=== PATIENT | male | born 2000 | race Caucasian/White ===

== ENCOUNTER 2021-01-04 00:02 | Inpatient (IN) ==
[2021-01-04 00:42] LABS: Basophils # (auto) 0.04 K/uL (0-0.2); Basophils % (auto) 0.5 %; Eosinophils # (auto) 0.09 K/uL (0-0.5); Eosinophils % (auto) 1.1 %; Hematocrit (blood only) 43.9 % (42-52); Hemoglobin 15.1 g/dL (14.0-18.0); Immature Granulocytes # (auto) 0.01 K/uL (0.00-0.02); Immature Granulocytes % (auto) 0.1 %; Lymphocytes % (auto) 30.1 %; Mean Corpuscular Hemoglobin 31.3 pg (25-34); Mean Corpuscular Hgb Conc 34.4 g/dL (32-36); Mean Corpuscular Volume 91.1 fL (80-100); Mean Platelet Volume 10.3 fL (7.4-10.4); Monocytes # (auto) 0.61 K/uL (0.11-0.59); Monocytes % (auto) 7.7 %; Neutrophils # (auto) 4.82 K/uL (1.4-6.5); Neutrophils % (auto) 60.5 %; Platelet Count 265 K/uL (130-400); RDW Coefficient of Variation 12.4 % (11.5-14.5); RDW Standard Deviation 41.9 fL (36.4-46.3); Red Blood Count 4.82 M/uL (4.7-6.1); White Blood Count 7.97 K/uL (4.8-10.8)
[2021-01-04 00:47] LABS: Appearance Urine Clear (Clear); Bilirubin Urine Negative (Negative); Blood Urine Negative (Negative); Color Urine Yellow; Glucose Urine UA Negative (Negative); Ketones Urine Negative (Negative); Leukocyte Esterase Urine Negative (Negative); Nitrite Urine Negative (Negative); Protein Urine Trace (Negative); Urobilinogen Urine Negative (Negative)
[2021-01-04 01:00] LABS: Albumin Level 4.6 gm/dl (3.4-5.0); BUN Creatinine Ratio 12.7 (10-20); Calcium 8.6 mg/dl (8.5-10.1); Creatinine Clr Calc Pharmacy 108.3 ml/min; Est GFR (African American) 97.1; Est GFR (Non-African American) 83.8; Potassium 3.6 mmol/L (3.5-5.1)
[2021-01-04 01:01] LABS: Amphetamines+Metham, Urine Neg (Neg); Bacteria Urine Negative (Negative); Barbiturates, Urine Neg (Neg); Benzodiazepine, Urine Neg (Neg); Cocaine, Urine Neg (Neg); Epithelial Cell Urine 20-30 /lpf (0-5); MDMA (Ecstacy), Urine Neg (Neg); Methadone, Urine Neg (Neg); Opiate, Urine Neg (Neg); Phencyclidine, Urine Neg (Neg); RBC Urine 0-4 /hpf (0-4); WBC Urine 0-5 /hpf (0-5)
[2021-01-04 01:10] LABS: Albumin Globulin Ratio 1.2 (0.9-2); Bilirubin,Total 0.6 mg/dl (0.2-1); Globulin 3.9 gm/dl (2.5-4.0); Thyroid Stimulating Hormone 1.21 uIu/ml (0.300-4.500); Total Protein 8.5 gm/dl (6.4-8.2)
[2021-01-04 01:19] LABS: Acetaminophen < 2 ug/ml (10-30)
[2021-01-04 01:20] LABS: Salicylate < 1.7 mg/dl (2.8-20)
--- NOTE | 2021-01-04 02:03 | Emergency Department Note ---
Impression & Plan Mood disorder, Alcohol intoxication ED Provider Note NAME: MIKE GONZALEZ AGE: 20 SEX: M : 2000 ARRIVES VIA: Walk-In INFORMANT: Patient, ED PROVIDER(S): Blu Plaza MD CHIEF COMPLAINT: intoxication, mood disorder HPI: This is a 20-year-old male who presents intoxicated to the emergency department. The patient reports he was drinking alcohol this evening when he supposedly made suicidal statements to his girlfriend. The patient reports he does not have a specific plan in mind and upon arrival to the emergency department chalks it up to drinking alcohol this evening. The patient reports he ran away from his girlfriend and went to the [facility] to be by himself. Upon arrival to the emergency department the patient denies being suicidal or homicidal. He does admit to drinking this evening. He reports nothing has made the thoughts any better or any worse. He has not taken anything for his thoughts prior to arrival. ROS: See above HPI for pertinent positives & negatives. A total of 10 systems reviewed and were otherwise negative. PAST MEDICAL HISTORY: See Below PAST SURGICAL HISTORY: See Below FAMILY HISTORY: See Below SOCIAL HISTORY: See Below HOME MEDICATIONS: See Below ALLERGIES: See Below VITALS: See Below PHYSICAL EXAMINATION: VITAL SIGNS - Vital signs and nursing notes were reviewed. GENERAL - 20-year-old male appearing stated age who is in no acute distress. Communicates well with provider and answers questions appropriately. SKIN - Without rashes. HEAD - NC/AT. EYES - PERRL with EOMI bilaterally. Sclera anicteric. Palpebral conjunctiva pink and moist with no injection noted. EARS - No deformities of external structures noted on gross examination bilaterally. NOSE - Midline and without cyanosis. No epistaxis or purulent drainage noted. Septum midline without deviation or septal hematoma noted. MOUTH/OROPHARYNX - Without perioral cyanosis. Buccal mucosa pink and moist and without leukoplakia. Tongue midline with equal elevation of palate bilaterally. No tonsillar hypertrophy, erythema, or exudates noted. dentition noted. NECK - Neck with FROM. Supple to palpation. lymphadenopathy noted. No nuchal rigidity. LUNGS - Chest wall symmetric without accessory muscle use, intercostals retractions, or central cyanosis. Normal vesicular breath sounds CTA B/L. No wheezes, rales, or rhonchi appreciated. CARDIAC - RRR with S1/S2. No murmur, rubs, or gallops appreciated. ABDOMEN - Abdominal contour without pulsations or visible masses. BS normoactive all four quadrants. No tenderness, palpable masses, hepat osplenomegaly, or ascites noted. EXTREMITIES - No clubbing or peripheral cyanosis. No pretibial edema present. +3/5 radial, posterior tibial, and dorsalis pedis pulses palpated throughout. +5/5 strength noted in UE/LE bilaterally. NEUROLOGIC - Cranial nerves II through XII grossly intact. Sensory intact to light touch throughout. Patellar reflexes +2/4. PSYCH - A&Ox3 and cooperates fully with examiner. Pt is very pleasant and interacts well with examiner. MEDICAL DECISION MAKING: Patient was seen and evaluated as above in room A5. Review was performed of nursing notes and vital signs. I did review pertinent previous visits and patient history. After obtaining a thorough history and physical examination the above work up was performed. This is a 20-year-old male who presents emergency department intoxicated. The patient's blood alcohol level was found to be elevated at 0.15. He was observed in the emergency department until his intoxication was cleared. He was then evaluated by psychiatric case management. In the meanwhile I also did discuss the patient's case with his mother who arrived from [place]. Patient was subsequently evaluated by psychiatric case management after his intoxication did clear and he was admitted to [facility]. The patient was evaluated during a period of high volume and high acuity during the global COVID-19 pandemic, and that diagnosis was suspected/considered upon their initial presentation. Their evaluation, treatment and testing was consistent with current guidelines for patients who present with complaints or symptoms that may be related to COVID-19. Patient was seen while provider was wearing PPE. Triage Nursing notes reviewed. Prior medical records reviewed Vital Signs: reviewed and remarkable for no significant abnormalities Differential diagnosis: Mood disorder, infection, hypoglycemia, electrolyte abnormalities, cardiac sources, intracerebral event, toxicologic, trauma, neurologic, as well as other pathologies. ER treatment provided: See below Laboratory studies: As stated above and show below. Consultation(s): Psychiatric case management Past Med/Surg History Medical History Alcohol abuse Marijuana abuse Suicidal ideation Social History Smoking Status: Current every day smoker (meeting up with a friend to use the f ritiffany's vape regularly) Preferred Language: Armenian Communication Ability: Effective Rf Engineer Required: No Beliefs That Will Affect Care: None Feels Safe at Home: Yes Assistive Devices: None Allergies Allergies Allergy/AdvReac Type Severity Reaction Status Date / Time No Known Allergies Allergy Unverified 01/04/21 13:31 Home Meds Home Medications Medication Instructions Recorded Confirmed quetiapine 25 mg PO DAILY 01/04/21 01/04/21 sertraline 50 mg PO DAILY 01/04/21 01/04/21 Results & Data (ED) Vital Signs Vital Signs - 24 hr 01/04/21 00:13 01/04/21 02:15 Temperature 37.3 C Temperature Source Temporal Artery Scan Pulse Rate 95 H Pulse Rate [Left Finger] 70 Pulse Rhythm [Left Finger] Regular Pulse Strength [Left Finger] Normal Respiratory Rate 16 16 Respiratory Effort / Characteristics Non-Labored Spontaneous Respiratory Depth Normal Normal Respiratory Pattern Regular Blood Pressure 133/80 Blood Pressure [Left Arm] 135/63 Blood Pressure Mean 97 Blood Pressure Mean [Left Arm] 87 Blood Pressure Position [Left Arm] Lying Pulse Oximetry 98 98 Oxygen Delivery Method Room Air Room Air Sepsis Recent Fever Within 48 Hours No Sepsis New/Unexplained Change in Mental Status N/A Sepsis Action Taken by Nursing No Action Required Laboratory Data Result diagrams: 01/04/21 00:29 01/04/21 00:29 Lab Results 01/04/21 01/04/21 01/04/21 Range/Units 00:24 00:24 00:29 WBC 7.97 (4.8-10.8) K/uL RBC 4.82 (4.7-6.1) M/uL Hgb 15.1 (14.0-18.0) g/dL Hct 43.9 (42-52) % MCV 91.1 (80-100) fL MCH 31.3 (25-34) pg MCHC 34.4 (32-36) g/dL RDW Std Deviation 41.9 (36.4-46.3) fL RDW Coeff of Vasquez 12.4 (11.5-14.5) % Plt Count 265 (130-400) K/uL MPV 10.3 (7.4-10.4) fL Immature Gran % (Auto) 0.1 % Neut % (Auto) 60.5 % Lymph % (Auto) 30.1 % [place] % (Auto) 7.7 % Eos % (Auto) 1.1 % Baso % (Auto) 0.5 % Neut # (Auto) 4.82 (1.4-6.5) K/uL Lymph # (Auto) 2.40 (1.2-3.4) K/uL [place] # (Auto) 0.61 H (0.11-0.59) K/uL Eos # (Auto) 0.09 (0-0.5) K/uL Baso # (Auto) 0.04 (0-0.2) K/uL Immature Gran # (Auto) 0.01 (0.00-0.02) K/uL Sodium (136-145) mmol/L Potassium (3.5-5.1) mmol/L Chloride (98-107) mmol/L Carbon Dioxide (21-32) mmol/L Anion Gap (3-11) BUN (7-18) mg/dl Creatinine (0.6-1.4) mg/dl Est Cr Clr Drug Dosing ml/min Est GFR ( Amer) Est GFR (Non-Af Amer) BUN/Creatinine Ratio (10-20) Glucose (70-99) mg/dl Calcium (8.5-10.1) mg/dl Total Bilirubin (0.2-1) mg/dl AST (15-37) U/L ALT (12-78) U/L Alkaline Phosphatase (45-117) U/L Total Protein (6.4-8.2) gm/dl Albumin (3.4-5.0) gm/dl Globulin (2.5-4.0) gm/dl Albumin/Globulin Ratio (0.9-2) TSH (0.300-4.500) uIu/ml Urine Color Yellow Urine Appearance Clear (Clear) Urine pH 5.0 (4.5-7.5) Ur Specific [place] 1.010 (1.000-1.030) Urine Protein Trace H (Negative) Urine Glucose (UA) Negative (Negative) Urine Ketones Negative (Negative) Urine Blood Negative (Negative) Urine Nitrite Negative (Negative) Urine Bilirubin Negative (Negative) Urine Urobilinogen Negative (Negative) Ur Leukocyte Esterase Negative (Negative) Urine RBC 0-4 (0-4) /hpf Urine WBC 0-5 (0-5) /hpf Ur Epithelial Cells 20-30 H (0-5) /lpf Urine Bacteria Negative (Negative) Salicylates (2.8-20) mg/dl Urine Opiates Screen Neg (Neg) Ur Methadone, Qual Neg (Neg) Acetaminophen (10-30) ug/ml Urine Barbiturates Neg (Neg) Ur Phencyclidine (PCP) Neg (Neg) U Amphetamin/Meth Scrn Neg (Neg) MDMA (Ecstasy) Screen Neg (Neg) U Benzodiazepines Scrn Neg (Neg) Ur Cocaine Metabolite Neg (Neg) U Marijuana (THC) Screen Neg (Neg) Ethyl Alcohol mg/dL (0-3) mg/dl COVID-19 Eval Order SARS-CoV-2, RNA, NAAT (NEGATIVE) 01/04/21 01/04/21 01/04/21 Range/Units 00:29 00:29 00:29 WBC (4.8-10.8) K/uL RBC (4.7-6.1) M/uL Hgb (14.0-18.0) g/dL Hct (42-52) % MCV (80-100) fL MCH (25-34) pg MCHC (32-36) g/dL RDW Std Deviation (36.4-46.3) fL RDW Coeff of Vasquez (11.5-14.5) % Plt Count (130-400) K/uL MPV (7.4-10.4) fL Immature Gran % (Auto) % Neut % (Auto) % Lymph % (Auto) % [place] % (Auto) % Eos % (Auto) % Baso % (Auto) % Neut # (Auto) (1.4-6.5) K/uL Lymph # (Auto) (1.2-3.4) K/uL [place] # (Auto) (0.11-0.59) K/uL Eos # (Auto) (0-0.5) K/uL Baso # (Auto) (0-0.2) K/uL Immature Gran # (Auto) (0.00-0.02) K/uL Sodium 139 (136-145) mmol/L Potassium 3.6 (3.5-5.1) mmol/L Chloride 106 (98-107) mmol/L Carbon Dioxide 27 (21-32) mmol/L Anion Gap 6.0 (3-11) BUN 16 (7-18) mg/dl Creatinine 1.24 (0.6-1.4) mg/dl Est Cr Clr Drug Dosing 108.3 ml/min Est GFR ( Amer) 97.1 Est GFR (Non-Af Amer) 83.8 BUN/Creatinine Ratio 12.7 (10-20) Glucose 91 (70-99) mg/dl Calcium 8.6 (8.5-10.1) mg/dl Total Bilirubin 0.6 (0.2-1) mg/dl AST 15 (15-37) U/L ALT 23 (12-78) U/L Alkaline Phosphatase 94 (45-117) U/L Total Protein 8.5 H (6.4-8.2) gm/dl Albumin 4.6 (3.4-5.0) gm/dl Globulin 3.9 (2.5-4.0) gm/dl Albumin/Globulin Ratio 1.2 (0.9-2) TSH 1.210 (0.300-4.500) uIu/ml Urine Color Urine Appearance (Clear) Urine pH (4.5-7.5) Ur Specific [place] (1.000-1.030) Urine Protein (Negative) Urine Glucose (UA) (Negative) Urine Ketones (Negative) Urine Blood (Negative) Urine Nitrite (Negative) Urine Bilirubin (Negative) Urine Urobilinogen (Negative) Ur Leukocyte Esterase (Negative) Urine RBC (0-4) /hpf Urine WBC (0-5) /hpf Ur Epithelial Cells (0-5) /lpf Urine Bacteria (Negative) Salicylates < 1.7 L (2.8-20) mg/dl Urine Opiates Screen (Neg) Ur Methadone, Qual (Neg) Acetaminophen < 2 L (10-30) ug/ml Urine Barbiturates (Neg) Ur Phencyclidine (PCP) (Neg) U Amphetamin/Meth Scrn (Neg) MDMA (Ecstasy) Screen (Neg) U Benzodiazepines Scrn (Neg) Ur Cocaine Metabolite (Neg) U Marijuana (THC) Screen (Neg) Ethyl Alcohol mg/dL 154.7 H (0-3) mg/dl COVID-19 Eval Order SARS-CoV-2, RNA, NAAT (NEGATIVE) 03/11/21 03/11/21 Range/Units 05:15 05:15 WBC (4.8-10.8) K/uL RBC (4.7-6.1) M/uL Hgb (14.0-18.0) g/dL Hct (42-52) % MCV (80-100) fL MCH (25-34) pg MCHC (32-36) g/dL RDW Std Deviation (36.4-46.3) fL RDW Coeff of Vasquez (11.5-14.5) % Plt Count (130-400) K/uL MPV (7.4-10.4) fL Immature Gran % (Auto) % Neut % (Auto) % Lymph % (Auto) % [place] % (Auto) % Eos % (Auto) % Baso % (Auto) % Neut # (Auto) (1.4-6.5) K/uL Lymph # (Auto) (1.2-3.4) K/uL [place] # (Auto) (0.11-0.59) K/uL Eos # (Auto) (0-0.5) K/uL Baso # (Auto) (0-0.2) K/uL Immature Gran # (Auto) (0.00-0.02) K/uL Sodium (136-145) mmol/L Potassium (3.5-5.1) mmol/L Chloride (98-107) mmol/L Carbon Dioxide (21-32) mmol/L Anion Gap (3-11) BUN (7-18) mg/dl Creatinine (0.6-1.4) mg/dl Est Cr Clr Drug Dosing ml/min Est GFR ( Amer) Est GFR (Non-Af Amer) BUN/Creatinine Ratio (10-20) Glucose (70-99) mg/dl Calcium (8.5-10.1) mg/dl Total Bilirubin (0.2-1) mg/dl AST (15-37) U/L ALT (12-78) U/L Alkaline Phosphatase (45-117) U/L Total Protein (6.4-8.2) gm/dl Albumin (3.4-5.0) gm/dl Globulin (2.5-4.0) gm/dl Albumin/Globulin Ratio (0.9-2) TSH (0.300-4.500) uIu/ml Urine Color Urine Appearance (Clear) Urine pH (4.5-7.5) Ur Specific [place] (1.000-1.030) Urine Protein (Negative) Urine Glucose (UA) (Negative) Urine Ketones (Negative) Urine Blood (Negative) Urine Nitrite (Negative) Urine Bilirubin (Negative) Urine Urobilinogen (Negative) Ur Leukocyte Esterase (Negative) Urine RBC (0-4) /hpf Urine WBC (0-5) /hpf Ur Epithelial Cells (0-5) /lpf Urine Bacteria (Negative) Salicylates (2.8-20) mg/dl Urine Opiates Screen (Neg) Ur Methadone, Qual (Neg) Acetaminophen (10-30) ug/ml Urine Barbiturates (Neg) Ur Phencyclidine (PCP) (Neg) U Amphetamin/Meth Scrn (Neg) MDMA (Ecstasy) Screen (Neg) U Benzodiazepines Scrn (Neg) Ur Cocaine Metabolite (Neg) U Marijuana (THC) Screen (Neg) Ethyl Alcohol mg/dL (0-3) mg/dl COVID-19 Eval Order Covid19 [facility] SARS-CoV-2, RNA, NAAT NEGATIVE (NEGATIVE) Administered Medications Quetiapine Fumarate (Quetiapine Fumarate 25 Mg Tablet) 25 mg PO HS JEREMIAS Stop: 02/03/21 21:59 Last Admin: 01/04/21 20:56 Dose: 25 mg Documented by: [id number] Discharge Plan Visit Data Chief Complaint: Mental Health Evaluation Stated Complaint: MENTAL EVAL ED Provider: Blu Plaza Discharge Problem: Mood disorder, Alcohol intoxication Patient Disposition: Admitted As Inpatient Discharge Instructions Interventions: ED Discharge Assessment Last Done: 01/04/21 06:44 Discharge Problem: Alcohol intoxication Qualifiers: Complication of substance-induced condition: uncomplicated Qualified Code(s): F10.920 - Alcohol use, unspecified with intoxication, uncomplicated
[2021-01-04] MEDS ORDERED: MAGNESIUM HYDROXIDE SUSP 30 ML UDC PO PRN ×2 (06:18→07:05)
[2021-01-04] MEDS ORDERED: hydrOXYzine HCl 25 MG TAB PO PRN ×2 (07:05)
[2021-01-04] MEDS ORDERED: ALUMINUM/MAGNESIUM SUSP 30 ML UDC PO PRN (07:05)
[2021-01-04] MEDS ORDERED: BISMUTH SUBSALICYLATE LIQD 236 ML PO PRN (07:05)
[2021-01-04] MEDS ORDERED: ACETAMINOPHEN 325 MG TAB PO PRN (07:05)
[2021-01-04] MEDS ORDERED: SODIUM CHLORIDE 0.65% NA SOLN 45 ML (OCEAN) PRN (07:05)
[2021-01-04] MEDS ORDERED: PATIENT'S HEIGHT AND/OR WEIGHT NEEDED SCH (07:15)
[2021-01-04] MEDS ORDERED: PATIENT'S ALLERGY INFO NEEDS ENTERED SCH (07:30)
--- NOTE | 2021-01-04 08:21 | History & Physical ---
Date of Service January 04, 2021 Impression / Recommendations (1) Suicidal ideation: 01/04 - Continue voluntary admission, suicide checks for safety. Encourage group attendance and participation, work on healthy coping skills and discharge safety plan. (2) Marijuana abuse: 01/04 - H/o treatment for cannabis abuse, continues to use. (3) Alcohol abuse: 01/04 - Brief intervention was offered and [accepted] [refused] Intervention (if performed) was [greater than 5] min in length. Brief interventions include: 1. Assess Readiness to Quit, 2. Advise: Help Patient to Reduce or Abstain from Alcohol, 3. Agree: Set Specific, Feasible Goals, 4. Assist: Anticipate barriers, Problem-Solving Solutions. Social work to 5. Arrange: Referrals to appropriate treatment. Summary of intervention: The patient is in [precontemplation] stage with regards to transtheoretical model of change. The patient is advised to decrease alcohol consumption due to depressant effects and risk of interactions with prescription medications. The patient agreed to [] and will be provided with recovery materials to continue to education self on how to cope with their condition without drinking. 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 Chief Complaint "[]". History of Present Illness Patient presented to the ER overnight, intoxicated, after making suicidal statements to his girlfriend. She completed a lengthy, 3 page petition outlining the events of last night, including that he told her was staying in, then went out drinking and a friend saw him, told the girlfriend, who confronted him downtown. He got upset, made suicidal statements (that he was going to end it tonight), and was hitting his head with his hands. He climbed up a pole and banged his head against it, laid in the grass and repeatedly stated he was going to kill himself tonight. She called friends for help, and he ran away from them. When they caught up to him, he pushed one of them away and "got a little violent." One of the friends called his mother, and they called 911. She reported he drinks excessively and smokes marijuana, despite getting treatment (IOP) for cannabis dependence in the past. 2 weeks ago, he also made statements that he did not want to be alive and hurts everyone. She said he was prescribed quetiapine 25mg and sertraline 50mg by his PCP about 2 months ago. In the ER, he reported suicidal thoughts for the past several months, said he was "testing boundaries with suicide," and on at least 2 occasions drank excessively, not caring if he . Admission labs notable for ethyl alcohol 154.7. He agreed to voluntary hospitalization. Past Psychiatric History Previous Psych History: IOP ([facility]) for THC dependence Current Psychiatric Diagnosis: Bipolar, Anxiety, Depression, OCD, cannabis dependence Outpatient Services: Therapist Katt Woods in [facility] [address] Vladimir Delacruz in [place] History of Previous Suicide Attempt: Yes (Drinking to excess on multiple occasions with hopes not to wake up) Home Medications Medication Instructions Recorded Confirmed Type quetiapine 25 mg PO DAILY 01/04/21 01/04/21 History sertraline 50 mg PO DAILY 01/04/21 01/04/21 History Family History Family History of: Doesn't Know Alcohol History Hx of Alcohol Use Over the Past 12 Months: Yes (Social) AUDIT Total Score: 4 Per girlfriend, drinks to excess, suicidality intensifies when intoxicated Smoking Use Have You Smoked or Used Tobacco Products in the Last 30 Days: No Smoking Status: Never smoker Substance History Hx of Prescription Med Misuse Over the Past 12 Months: No Hx of Over the Counter Med Misuse Over the Past 12 Months: No Hx of Inhalent Misuse Over the Past 12 Months: No Hx of Organic Substance Use Over the Past 12 Months: Yes (Marijuana) Hx of Illegal Substances/Street Drug Use Over Past 12 Months: No Problems as a Result of Past Substance Use: Other (Suicidality intensifies when intoxicated) Personal History Living Arrangements: Dorm Childhood: Adopted from a [place] orphanage at age 4. Knows nothing of his biological family. Only child, raised in [place]. Highest Grade Completed: High School Graduate Employment Status: Student Marital Status: Single Number Of Children: 0 Beliefs That Will Affect Care: None Patient History Medical History (Updated 01/04/21 @ 08:41 by Maile Joya MD) Alcohol abuse Marijuana abuse Suicidal ideation Social History Smoking Status: Never smoker Preferred Language: Argentine Communication Ability: Effective Cigarette Tipper Required: No Beliefs That Will Affect Care: None Feels Safe at Home: Yes Assistive Devices: None Physical Exam Vital Signs (Past 24 Hours): Last Vital Signs Temp 37.3 C 01/04/21 07:13 Pulse 60 01/04/21 07:13 Resp 16 01/04/21 07:13 BP 121/70 01/04/21 07:13 Pulse Ox 97 01/04/21 06:44 Exam Statement: A physical exam was performed in the ER prior to admission to the unit by Dr. Blu Plaza. I accept that physical as correct/medical clearance for the inpatient physical exam. Results & Data ([facility]) Laboratory Results Laboratory Results - last 24 hr 01/04/21 01/04/21 01/04/21 00:24 00:24 00:29 WBC 7.97 RBC 4.82 Hgb 15.1 Hct 43.9 MCV 91.1 MCH 31.3 MCHC 34.4 RDW Std Deviation 41.9 RDW Coeff of Vasquez 12.4 Plt Count 265 MPV 10.3 Immature Gran % (Auto) 0.1 Neut % (Auto) 60.5 Lymph % (Auto) 30.1 [place] % (Auto) 7.7 Eos % (Auto) 1.1 Baso % (Auto) 0.5 Neut # (Auto) 4.82 Lymph # (Auto) 2.40 [place] # (Auto) 0.61 H Eos # (Auto) 0.09 Baso # (Auto) 0.04 Immature Gran # (Auto) 0.01 Sodium Potassium Chloride Carbon Dioxide Anion Gap BUN Creatinine Est Cr Clr Drug Dosing Est GFR ( Amer) Est GFR (Non-Af Amer) BUN/Creatinine Ratio Glucose Calcium Total Bilirubin AST ALT Alkaline Phosphatase Total Protein Albumin Globulin Albumin/Globulin Ratio TSH Urine Color Yellow Urine Appearance Clear Urine pH 5.0 Ur Specific [place] 1.010 Urine Protein Trace H Urine Glucose (UA) Negative Urine Ketones Negative Urine Blood Negative Urine Nitrite Negative Urine Bilirubin Negative Urine Urobilinogen Negative Ur Leukocyte Esterase Negative Urine RBC 0-4 Urine WBC 0-5 Ur Epithelial Cells 20-30 H Urine Bacteria Negative Salicylates Urine Opiates Screen Neg Ur Methadone, Qual Neg Acetaminophen Urine Barbiturates Neg Ur Phencyclidine (PCP) Neg U Amphetamin/Meth Scrn Neg MDMA (Ecstasy) Screen Neg U Benzodiazepines Scrn Neg Ur Cocaine Metabolite Neg U Marijuana (THC) Screen Neg Ethyl Alcohol mg/dL COVID-19 Eval Order SARS-CoV-2, RNA, NAAT 01/04/21 01/04/21 01/04/21 00:29 00:29 00:29 WBC RBC Hgb Hct MCV MCH MCHC RDW Std Deviation RDW Coeff of Vasquez Plt Count MPV Immature Gran % (Auto) Neut % (Auto) Lymph % (Auto) [place] % (Auto) Eos % (Auto) Baso % (Auto) Neut # (Auto) Lymph # (Auto) [place] # (Auto) Eos # (Auto) Baso # (Auto) Immature Gran # (Auto) Sodium 139 Potassium 3.6 Chloride 106 Carbon Dioxide 27 Anion Gap 6.0 BUN 16 Creatinine 1.24 Est Cr Clr Drug Dosing 108.3 Est GFR ( Amer) 97.1 Est GFR (Non-Af Amer) 83.8 BUN/Creatinine Ratio 12.7 Glucose 91 Calcium 8.6 Total Bilirubin 0.6 AST 15 ALT 23 Alkaline Phosphatase 94 Total Protein 8.5 H Albumin 4.6 Globulin 3.9 Albumin/Globulin Ratio 1.2 TSH 1.210 Urine Color Urine Appearance Urine pH Ur Specific [place] Urine Protein Urine Glucose (UA) Urine Ketones Urine Blood Urine Nitrite Urine Bilirubin Urine Urobilinogen Ur Leukocyte Esterase Urine RBC Urine WBC Ur Epithelial Cells Urine Bacteria Salicylates < 1.7 L Urine Opiates Screen Ur Methadone, Qual Acetaminophen < 2 L Urine Barbiturates Ur Phencyclidine (PCP) U Amphetamin/Meth Scrn MDMA (Ecstasy) Screen U Benzodiazepines Scrn Ur Cocaine Metabolite U Marijuana (THC) Screen Ethyl Alcohol mg/dL 154.7 H COVID-19 Eval Order SARS-CoV-2, RNA, NAAT 01/04/21 01/04/21 05:15 05:15 WBC RBC Hgb Hct MCV MCH MCHC RDW Std Deviation RDW Coeff of Vasquez Plt Count MPV Immature Gran % (Auto) Neut % (Auto) Lymph % (Auto) [place] % (Auto) Eos % (Auto) Baso % (Auto) Neut # (Auto) Lymph # (Auto) [place] # (Auto) Eos # (Auto) Baso # (Auto) Immature Gran # (Auto) Sodium Potassium Chloride Carbon Dioxide Anion Gap BUN Creatinine Est Cr Clr Drug Dosing Est GFR ( Amer) Est GFR (Non-Af Amer) BUN/Creatinine Ratio Glucose Calcium Total Bilirubin AST ALT Alkaline Phosphatase Total Protein Albumin Globulin Albumin/Globulin Ratio TSH Urine Color Urine Appearance Urine pH Ur Specific [place] Urine Protein Urine Glucose (UA) Urine Ketones Urine Blood Urine Nitrite Urine Bilirubin Urine Urobilinogen Ur Leukocyte Esterase Urine RBC Urine WBC Ur Epithelial Cells Urine Bacteria Salicylates Urine Opiates Screen Ur Methadone, Qual Acetaminophen Urine Barbiturates Ur Phencyclidine (PCP) U Amphetamin/Meth Scrn MDMA (Ecstasy) Screen U Benzodiazepines Scrn Ur Cocaine Metabolite U Marijuana (THC) Screen Ethyl Alcohol mg/dL COVID-19 Eval [facility] SARS-CoV-2, RNA, NAAT NEGATIVE Current Inpatient Medications Current Inpatient Medications: Current Inpatient Medications Acetaminophen (Acetaminophen 325 Mg Tab) 650 mg PO Q4H PRN PRN Reason: Headache or Minor Fever Stop: 02/03/21 07:04 Al Hydrox/Mg Hydrox/Simethicone (Aluminum/Magnesium Susp 30 Ml Udc) 30 ml PO Q4H PRN PRN Reason: GI Upset Stop: 02/03/21 07:04 Bismuth Subsalicylate (Bismuth Subsalicylate Liqd 236 Ml) 15 ml PO PRN PRN PRN Reason: Loose Stool Stop: 02/03/21 07:04 Hydroxyzine HCl (Hydroxyzine Hcl 25 Mg Tab) 50 mg PO HSZ PRN PRN Reason: Insomnia Stop: 02/03/21 07:04 Hydroxyzine HCl (Hydroxyzine Hcl 25 Mg Tab) 25 mg PO Q4H PRN PRN Reason: Anxiety Stop: 02/03/21 07:04 Magnesium Hydroxide (Magnesium Hydroxide Susp 30 Ml Udc) 30 ml PO DAILY PRN PRN Reason: Constipation Stop: 02/03/21 07:04 Miscellaneous Information (Patient's Allergy Info Needs Entered) 1 ea N/A Q30M JEREMIAS Stop: 02/03/21 07:29 Sodium Chloride (Sodium Chloride 0.65% Na Soln 45 Ml (Neche)) 1 - 2 sprays NA PRN PRN PRN Reason: Nasal Dryness/Congestion Stop: 04/10/21 07:04
--- NOTE | 2021-01-04 12:31 | History & Physical ---
Date of Service January 04, 2021 Impression / Recommendations Impression 20-year-old male admitted voluntarily for inpatient psychiatric admission on 01/04/21 after presenting to the ED via police due to worsening depression and SI. Back-up 302 petitioning statement was completed by girlfriend who reported the patient had made suicidal statements prior to admission and resisted attempts by supports to assist with the situation. Although patient had reportedly been drinking prior to these events, girlfriend did admit this is a pattern of behavior for the patient even when sober. Pt has historical diagnoses of "depression, anxiety, OCD, and bipolar disorder" but only reports clear criteria for major depressive disorder and generalized anxiety disorder. Pt also endorses regular episodes of binge drinking as well as "nicotine addiction" with a history of intensive outpatient rehab for marijuana use ~1 year ago. He does see a therapist, now remotely due to being back at school, and medications are prescribed by his PCP. Pt was agreeable with titrating his dose of sertraline and wished to continue quetiapine which was reportedly started for insomnia. Pt will be encouraged to attend group programming and participate in a support meeting with parents to discuss safety and discharge planning. At this time, the patient continues to be at acute risk of harm to himself if discharged prematurely. Dr. Maile Joya was directly involved in review and discussion of the patient's case and participated in medical decision making regarding treatment recommendations. (1) Suicidal ideation: 01/04 - Admitted to a locked inpatient behavioral health unit, on q15 minute safety checks - Encourage medication initiation/adjustments as indicated - Encourage participation in group and recreational therapies - Gather collateral information from outpatient providers - Suggest family meeting to involve outpatient supports in safety planning - Arrange appropriate aftercare (2) Depression: 01/04 - Working diagnosis of major depressive disorder, given that patient has been experiencing episodes of depression since early High School. Differential includes substance-induced depressive disorder, or dysthymic disorder. Patient denies symptoms consistent with adam/hypomania, but does report an outpatient diagnosis of bipolar disorder/bipolar depression. - Pt agreed to titration of sertraline to 100mg daily. Risks, benefits, and potential side effects reviewed - this included Black Box warning regarding risk of suicidality in children and adolescents. We discussed reports that suggest suicidal thoughts may be more intense since medication changes were made; however, this timeline is also consistent with increased alcohol use and several situational stressors this semester. Pt was offered a trial of an alternative antidepressant medication, but agreed to initial plan to titrate sertraline while closely monitoring for worsening suicidality. Alternative medications would ideally address vegetative depressive symptom as well as chronic anxiety. - Pt will be encouraged to attend group and recreational programming - assist with development of healthy and effective coping strategies - Discuss influence of substance use on mood and anxiety, encourage D&A counseling - Schedule family meeting - ideally with parents - Referral for outpatient psychiatry - likely continuing with current individual therapist via teletherapy - Discuss safety and discharge planning Active/Remission status: currently active Depression Type: major depressive disorder Major depression episode severity: severe Major depression recurrence: recurrent Psychotic features: without psychotic features Qualified Code(s): F33.2 - Major depressive disorder, recurrent severe without psychotic features (3) Generalized anxiety disorder: 01/04 - Titrating sertraline as outlined above - Pt reports historical diagnosis of OCD and claims of "social anxiety", though reported anxiety is more consistent with "fear of missing out" or "fear that people don't like me or I'm not fitting in." - Encourage group attendance, 1:1 sessions as desired - Assist with development of healthy and effective coping strategies (4) Alcohol abuse: 01/04 - Monitor vitals daily - behavior is more consistent with binge drinking, seems to be at low risk for withdrawal, but could order AWSS protocol if indicated. - Encourage D&A counseling to address these concerns in addition to his mood/anxiety symptoms - Brief intervention was offered and accepted Intervention (if performed) was greater than 5 min in length. Brief interventions include: 1. Assess Readiness to Quit, 2. Advise: Help Patient to Reduce or Abstain from Alcohol, 3. Agree: Set Specific, Feasible Goals, 4. Assist: Anticipate barriers, Problem-Solving Solutions. Social work to 5. Arrange: Referrals to appropriate treatment. Summary of intervention: The patient is in contemplation stage with regards to transtheoretical model of change. The patient is advised to decrease alcohol consumption due to depressant effects and risk of interactions with prescription medications. The patient agreed to continue these discussion and will be provided with recovery materials to continue to education self on how to cope with their condition without drinking. (5) Marijuana abuse: 01/04 - History of intensive outpatient treatment for cannabis abuse his senior year of high school, reports "just occasional" use since that time - Offer D&A counseling (6) Nicotine abuse: 01/04 - Nicotine replacement products ordered Risk Factors Assessment Do You Have Access To A Gun?: No Protective Factors Assessment Employed: No Psychiatric History Identifying Data MIKE HODGES is a 20-year-old M who currently lives in a dorm room on [facility] and reports outpatient diagnoses of anxiety, depression, O CD, and bipolar disorder. Pt was admitted on 01/04/21 06:18 on a 201 voluntary commitment for worsening depression and SI. Brought to the ED by police, back- up 302 petitioning statement completed by patient's girlfriend. Chief Complaint "I'd say the biggest thing is that my girlfriend got upset with me. I do really bad with conflict, it feels like the end of the world sometimes." History of Present Illness Mike Hodges is a 20-year-old male admitted voluntarily for inpatient psychiatric treatment on 01/04/21 due to worsening depression and SI. He was reportedly drinking and became acutely upset and had verbalized suicidality. Pt continued to escalate, eventually escaping from the friends that were offering assistance and running away. Pt was found by police after the friends had called 911. Pt did agree to recommendations for mental health evaluation in the ED. Back-up 302 petitioning statement was prepared by the patient's girlfriend - some quotes from the statement include: "Robinson Thompson drank with some friends...he got upset. He started walking away and saying he was going to end it robinson. I followed him, he started hitting his head w/ his hands...kept saying he was going to kill himself robinson...Two weeks ago he said the same things, he didn't want to be alive and he hurts everyone. Tonight he also said he's been playing suicide the past 2 months." Statements do seem to suggest that these events occur more when the patient is intoxicated, but no isolated to these events. The patient was brought to the unit early this morning after reportedly little sleep in the ED. Numerous attempts were made this morning by our psychiatrist to attempt to meet with the patient and complete psychiatric evaluation. Pt continued to be too sedated to participate. Per the patient, he has been noticing increased dependence on nicotine and has been visiting with a friend who is "a bad influence" in order to use the friend's vape. The patient states that he has not been telling his girlfriend about this since the girlfriend requested he not hang out with this friend anymore. The patient had been drinking and his girlfriend confronted him about the visit, causing the patient to feel "my brain went into panic mode". Pt states he reported he wanted to kill himself and began walking away from his girlfriend while hitting his head. Pt ran away from his friends, who then called police. He states "I didn't really care what happened after I ran away, I wouldn't have cared if I got hurt." Pt states that the suicidal thoughts are worse when he is drinking, but he admits that even when sober he experiences thoughts of wanting to end his life. He reports these thoughts occur 3-4 times a week and usually in the evening. He states they have become worse since the start of the semester, due to feeling he is no longer a part of the friend group he established in the Fall. He reports feeling as though he does not have happiness outside of his girlfriend. Pt admits to depressive symptoms "since grade school, I never really fit in." He reports he would often feel he had to "fake it" to make friends and states he depression worsened in high school as "it was like someone hit the reset button, like I had to start all over again." Pt admits to depressive symptoms of persistent low moods, anhedonia, poor motivation/energy, increased desire for sleep, loneliness, hopelessness, and intermittent SI. Pt also admits to significant anxiety, feeling that he suffers from "FOMO, the fear of missing out." He says he likes to be social and feel involved, but gets anxious when he questions if his friends like him or feels like he needs to fit in. He reports racing thoughts that often interfere with sleep, difficulty concentrating, constant worry about "feeling like I have to do the 'right thing'", and occasional panic attacks that result in crying spells and nausea. In particular, the patient states the substance-abuse culture of college has been difficult - "that's just what people do when they hang out." Pt admits to routine binge drinking, which he does feel negatively affects his mood and relationships. He also admits to increased nicotine use recently. Pt has a history of intensive outpatient treatment for marijuana abuse in high school. Pt states he sees a therapist routinely, who has diagnosed him with OCD and bipolar disorder in addition to anxiety and depression. He denies clear obsessions or compulsions and does not report symptoms consistent with adam/hypomania. Pt denies HI, SIB, A/V hallucinations, paranoia, adam/hypomania, other symptoms more suggestive of a bipolar presentation, OCD, PTSD, eating disorder, and other specific psychiatric symptoms. Past Psychiatric History Current Psychiatric Diagnosis: Per patient: Bipolar, Anxiety, Depression, OCD Outpatient Services: Therapist - [facility] - based in [place], current seen via teletherapy Medications are prescribed by the patient's PCP Previous Psych Admissions: None Do You Have Access To A Gun?: No History of Previous Suicide Attempt: Yes (patient at least identifies a past attempt which occurred while drinking) Describe Attempts in the Past: drank "a whole case of beer with the hope that it would kill me" Past Medication Trials: Per patient reports: 1. Lexapro - sexual side effects 2. Zoloft 3. Seroquel - prescribed for insomnia Allergies Allergy/AdvReac Type Severity Reaction Status Date / Time No Known Allergies Allergy Unverified 01/04/21 13:31 Home Medications Medication Instructions Recorded Confirmed Type quetiapine 25 mg PO DAILY 01/04/21 01/04/21 History sertraline 50 mg PO DAILY 01/04/21 01/04/21 History Family History Family History of: Doesn't Know (patient was adopted from [place] at age 4) Alcohol History Hx of Alcohol Use Over the Past 12 Months: Yes (Social) AUDIT Total Score: 4 Pt admits to routine binge drinking - generally at least 2 days a week. Pt adm its to generally consuming 10+ beverages, usually liquor in a night. He does admit to getting drunk or even blacking out with this amount. Smoking Use Have You Smoked or Used Tobacco Products in the Last 30 Days: Yes tobacco type: e-cigarettes Smoking Status: Current every day smoker (meeting up with a friend to use the friend's vape regularly) Substance History Hx of Prescription Med Misuse Over the Past 12 Months: No Hx of Over the Counter Med Misuse Over the Past 12 Months: No Hx of Inhalent Misuse Over the Past 12 Months: No Hx of Organic Substance Use Over the Past 12 Months: Yes (Marijuana) Hx of Illegal Substances/Street Drug Use Over Past 12 Months: No Problems as a Result of Past Substance Use: None Identified Pt admits to "only occasional" use of marijuana recently - though does state he has been "dependent" on the substance in the past and did attend a 6 month outpatient intensive treatment program during his senior year of high school. Personal History Living Arrangements: [facility] [place] Highest Grade Completed: Some College (Currently a second-semester Freshman at [employer]. 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) Employment Status: Student Marital Status: Single (girlfriend of 5 months) Number Of Children: None Beliefs That Will Affect Care: None Hx Legal Problems: No (though unsure if he will get an underage from events prior to admission) Psychological Trauma History Comment: Denied - pt was adopted from [place] at age 4, but states he does not remember events related to this Patient History Medical History Alcohol abuse Marijuana abuse Suicidal ideation Social History Smoking Status: Current every day smoker (meeting up with a friend to use the friend's vape regularly) Preferred Language: Japanese Communication Ability: Effective Byproducts Operator Required: No Beliefs That Will Affect Care: None Feels Safe at Home: Yes Assistive Devices: None Review of Systems Review of Systems: Constitutional: reports fatigue today Cardiovascular: denied Respiratory: denied Gastrointestinal: denied Neurological: denied Musculoskeletal: reports occasional joint pain/body aches Psychiatric: denies symptoms other than stated above Total of at least 10 systems reviewed, pertinent positives as above and in HPI. Physical Exam Psychiatric: Orientation: alert, oriented x 3 and cooperative Apperance: appropriately dressed, appropriately groomed and appeared stated age Cauc[place] an male of larger build, not overweight, observed while laying in bed appearing initially to be very tearful. He is casually and appropriately dressed. Hair is appearing somewhat disheveled from running his hands through it. Level of hygiene and grooming appears adequate. Eye Contact: + fair eye contact Motor Behavior: no abnormal motor movements (observed while either laying or sitting upright in bed) Speech: normal rate/rhythm/volume of speech Affect: + depressed affect and + tearful affect Mood: + depressed mood and + anxious mood Thought Process: goal directed thought process and clear/coherent thought process Thought Content: + cognitive distortions, + loneliness, + guilt and + self deprecation Suicidal Thoughts: + reports suicidal thoughts Hallucinations: no auditory hallucinations and no visual hallucinations Cognition: recent memory grossly intact, attention grossly intact and language grossly intact Estimated Intelligence: consistent with education level Insight: + limited insight Judgement: + limited judgement Vital Signs (Past 24 Hours): Last Vital Signs Temp 37.3 C 01/04/21 07:13 Pulse 60 01/04/21 07:13 Resp 16 01/04/21 07:13 BP 121/70 01/04/21 07:13 Pulse Ox 97 01/04/21 06:44 Exam Statement: A physical exam was performed in the ER prior to admission to the unit by Dr. Blu Plaza MD. I accept that physical as correct/medical clearance for the inpatient physical exam. Results & Data (U) Laboratory Results Laboratory Results - last 24 hr 01/04/21 01/04/21 01/04/21 00:24 00:24 00:29 WBC 7.97 RBC 4.82 Hgb 15.1 Hct 43.9 MCV 91.1 MCH 31.3 MCHC 34.4 RDW Std Deviation 41.9 RDW Coeff of Vasquez 12.4 Plt Count 265 MPV 10.3 Immature Gran % (Auto) 0.1 Neut % (Auto) 60.5 Lymph % (Auto) 30.1 Bibb % (Auto) 7.7 Eos % (Auto) 1.1 Baso % (Auto) 0.5 Neut # (Auto) 4.82 Lymph # (Auto) 2.40 Bibb # (Auto) 0.61 H Eos # (Auto) 0.09 Baso # (Auto) 0.04 Immature Gran # (Auto) 0.01 Sodium Potassium Chloride Carbon Dioxide Anion Gap BUN Creatinine Est Cr Clr Drug Dosing Est GFR ( Amer) Est GFR (Non-Af Amer) BUN/Creatinine Ratio Glucose Calcium Total Bilirubin AST ALT Alkaline Phosphatase Total Protein Albumin Globulin Albumin/Globulin Ratio TSH Urine Color Yellow Urine Appearance Clear Urine pH 5.0 Ur Specific [place] 1.010 Urine Protein Trace H Urine Glucose (UA) Negative Urine Ketones Negative Urine Blood Negative Urine Nitrite Negative Urine Bilirubin Negative Urine Urobilinogen Negative Ur Leukocyte Esterase Negative Urine RBC 0-4 Urine WBC 0-5 Ur Epithelial Cells 20-30 H Urine Bacteria Negative Salicylates Urine Opiates Screen Neg Ur Methadone, Qual Neg Acetaminophen Urine Barbiturates Neg Ur Phencyclidine (PCP) Neg U Amphetamin/Meth Scrn Neg MDMA (Ecstasy) Screen Neg U Benzodiazepines Scrn Neg Ur Cocaine Metabolite Neg U Marijuana (THC) Screen Neg Ethyl Alcohol mg/dL COVID-19 Eval Order SARS-CoV-2, RNA, NAAT 01/04/21 01/04/21 01/04/21 00:29 00:29 00:29 WBC RBC Hgb Hct MCV MCH MCHC RDW Std Deviation RDW Coeff of Vasquez Plt Count MPV Immature Gran % (Auto) Neut % (Auto) Lymph % (Auto) Bibb % (Auto) Eos % (Auto) Baso % (Auto) Neut # (Auto) Lymph # (Auto) Bibb # (Auto) Eos # (Auto) Baso # (Auto) Immature Gran # (Auto) Sodium 139 Potassium 3.6 Chloride 106 Carbon Dioxide 27 Anion Gap 6.0 BUN 16 Creatinine 1.24 Est Cr Clr Drug Dosing 108.3 Est GFR ( Amer) 97.1 Est GFR (Non-Af Amer) 83.8 BUN/Creatinine Ratio 12.7 Glucose 91 Calcium 8.6 Total Bilirubin 0.6 AST 15 ALT 23 Alkaline Phosphatase 94 Total Protein 8.5 H Albumin 4.6 Globulin 3.9 Albumin/Globulin Ratio 1.2 TSH 1.210 Urine Color Urine Appearance Urine pH Ur Specific [place] Urine Protein Urine Glucose (UA) Urine Ketones Urine Blood Urine Nitrite Urine Bilirubin Urine Urobilinogen Ur Leukocyte Esterase Urine RBC Urine WBC Ur Epithelial Cells Urine Bacteria Salicylates < 1.7 L Urine Opiates Screen Ur Methadone, Qual Acetaminophen < 2 L Urine Barbiturates Ur Phencyclidine (PCP) U Amphetamin/Meth Scrn MDMA (Ecstasy) Screen U Benzodiazepines Scrn Ur Cocaine Metabolite U Marijuana (THC) Screen Ethyl Alcohol mg/dL 154.7 H COVID-19 Eval Order SARS-CoV-2, RNA, NAAT 01/04/21 01/04/21 05:15 05:15 WBC RBC Hgb Hct MCV MCH MCHC RDW Std Deviation RDW Coeff of Vasquez Plt Count MPV Immature Gran % (Auto) Neut % (Auto) Lymph % (Auto) Bibb % (Auto) Eos % (Auto) Baso % (Auto) Neut # (Auto) Lymph # (Auto) Bibb # (Auto) Eos # (Auto) Baso # (Auto) Immature Gran # (Auto) Sodium Potassium Chloride Carbon Dioxide Anion Gap BUN Creatinine Est Cr Clr Drug Dosing Est GFR ( Amer) Est GFR (Non-Af Amer) BUN/Creatinine Ratio Glucose Calcium Total Bilirubin AST ALT Alkaline Phosphatase Total Protein Albumin Globulin Albumin/Globulin Ratio TSH Urine Color Urine Appearance Urine pH Ur Specific [place] Urine Protein Urine Glucose (UA) Urine Ketones Urine Blood Urine Nitrite Urine Bilirubin Urine Urobilinogen Ur Leukocyte Esterase Urine RBC Urine WBC Ur Epithelial Cells Urine Bacteria Salicylates Urine Opiates Screen Ur Methadone, Qual Acetaminophen Urine Barbiturates Ur Phencyclidine (PCP) U Amphetamin/Meth Scrn MDMA (Ecstasy) Screen U Benzodiazepines Scrn Ur Cocaine Metabolite U Marijuana (THC) Screen Ethyl Alcohol mg/dL COVID-19 Eval [facility] SARS-CoV-2, RNA, NAAT NEGATIVE Current Inpatient Medications Current Inpatient Medications: Current Inpatient Medications Acetaminophen (Acetaminophen 325 Mg Tab) 650 mg PO Q4H PRN PRN Reason: Headache or Minor Fever Stop: 02/03/21 07:04 Al Hydrox/Mg Hydrox/Simethicone (Aluminum/Magnesium Susp 30 Ml Udc) 30 ml PO Q4H PRN PRN Reason: GI Upset Stop: 02/03/21 07:04 Bismuth Subsalicylate (Bismuth Subsalicylate Liqd 236 Ml) 15 ml PO PRN PRN PRN Reason: Loose Stool Stop: 02/03/21 07:04 Hydroxyzine HCl (Hydroxyzine Hcl 25 Mg Tab) 50 mg PO HSZ PRN PRN Reason: Insomnia Stop: 02/03/21 07:04 Hydroxyzine HCl (Hydroxyzine Hcl 25 Mg Tab) 25 mg PO Q4H PRN PRN Reason: Anxiety Stop: 02/03/21 07:04 Magnesium Hydroxide (Magnesium Hydroxide Susp 30 Ml Udc) 30 ml PO DAILY PRN PRN Reason: Constipation Stop: 02/03/21 07:04 Miscellaneous Information (Patient's Allergy Info Needs Entered) 1 ea N/A Q30M [id number] Stop: 02/03/21 07:29 Sodium Chloride (Sodium Chloride 0.65% Na Soln 45 Ml ([place])) 1 - 2 sprays NA PRN PRN PRN Reason: Nasal Dryness/Congestion Stop: 02/03/21 07:04
[2021-01-04] MEDS ORDERED: NICOTINE POLACRILEX 2 MG GUM MT PRN (16:12)
[2021-01-04] MEDS: QUEtiapine FUMARATE 25 MG TABLET PO SCH (20:56)
[2021-01-04] MEDS ORDERED: QUEtiapine FUMARATE 25 MG TABLET PO SCH (22:00)
[2021-01-05] MEDS ORDERED: SERTRALINE HCL 100 MG TABLET PO SCH (09:00)
[2021-01-05] MEDS: SERTRALINE HCL 100 MG TABLET PO SCH (09:26)
--- NOTE | 2021-01-05 09:31 | Psychiatric Progress Note ---
Date of Service January 05, 2021 Impression / Recommendations Impression 20-year-old male admitted voluntarily for inpatient psychiatric admission on 01/04/21 after presenting to the ED via police due to worsening depression and SI. [employer] petitioning statement was completed by girlfriend who reported the patient had made suicidal statements prior to admission and resisted attempts by supports to assist with the situation. Although patient had reportedly been drinking prior to these events, girlfriend did admit this is a pattern of behavior for the patient even when sober. Pt has historical diagnoses of "depression, anxiety, OCD, and bipolar disorder" but only reports clear criteria for major depressive disorder and generalized anxiety disorder. Pt also endorses regular episodes of binge drinking as well as "nicotine addiction" with a history of intensive outpatient rehab for marijuana use ~1 year ago. He does see a therapist, now remotely due to being back at school, and medications are prescribed by his PCP. Pt was agreeable with titrating his dose of sertraline and wished to continue quetiapine which was reportedly started for insomnia. Pt will be encouraged to attend group programming and participate in a support meeting with parents to discuss safety and discharge planning. At this time, the patient continues to be at acute risk of harm to himself if discharged prematurely. (1) Suicidal ideation: 01/04 - Admitted to a locked inpatient behavioral health unit, on q15 minute safety checks - Encourage medication initiation/adjustments as indicated - Encourage participation in group and recreational therapies - Gather collateral information from outpatient providers - Suggest family meeting to involve outpatient supports in safety planning - Arrange appropriate aftercare 01/05 - Denies SI currently, but ongoing depression with hopelessness (2) Depression: 01/04 - Working diagnosis of major depressive disorder, given that patient has been experiencing episodes of depression since early High School. Differential includes substance-induced depressive disorder, or dysthymic disorder. Patient denies symptoms consistent with adam/hypomania, but does report an outpatient diagnosis of bipolar disorder/bipolar depression. - Pt agreed to titration of sertraline to 100mg daily. Risks, benefits, and potential side effects reviewed - this included Black Box warning regarding risk of suicidality in children and adolescents. We discussed reports that suggest suicidal thoughts may be more intense since medication changes were made; however, this timeline is also consistent with increased alcohol use and several situational stressors this semester. Pt was offered a trial of an alternative antidepressant medication, but agreed to initial plan to titrate sertraline while closely monitoring for worsening suicidality. Alternative medications would ideally address vegetative depressive symptom as well as chronic anxiety. - Pt will be encouraged to attend group and recreational programming - assist with development of healthy and effective coping strategies - Discuss influence of substance use on mood and anxiety, encourage D&A counseling - Schedule family meeting - ideally with parents - Referral for outpatient psychiatry - likely continuing with current individual therapist via teletherapy - Discuss safety and discharge planning 01/05 - Continue sertraline 100mg qAM - consider further titration as tolerated/indicated - Continue quetiapine for insomnia (home medications); fasting lipid panel and glucose ordered for tomorrow morning - Encourage more active engagement with unit programming - Schedule meeting with parents - Referral for outpatient psychiatry (3) Generalized anxiety disorder: 01/04 - Titrating sertraline as outlined above - Pt reports historical diagnosis of OCD and claims of "social anxiety", though reported anxiety is more consistent with "fear of missing out" or "fear that people don't like me or I'm not fitting in." - Encourage group attendance, 1:1 sessions as desired - Assist with development of healthy and effective coping strategies 01/05 - Continue as above - encourage more active participation in group programming - Hydroxyzine available as needed for anxiety (4) Alcohol abuse: 01/04 - Monitor vitals daily - behavior is more consistent with binge drinking, seems to be at low risk for withdrawal, but could order AWSS protocol if indicated. - Encourage D&A counseling to address these concerns in addition to his mood/anxiety symptoms - Brief intervention was offered and accepted Intervention (if performed) was greater than 5 min in length. Brief interventions include: 1. Assess Readiness to Quit, 2. Advise: Help Patient to Reduce or Abstain from Alcohol, 3. Agree: Set Specific, Feasible Goals, 4. Assist: Anticipate barriers, Problem-Solving Solutions. Social work to 5. Arrange: Referrals to appropriate treatment. Summary of intervention: The patient is in contemplation stage with regards to transtheoretical model of change. The patient is advised to decrease alcohol consumption due to depressant effects and risk of interactions with prescription medications. The patient agreed to continue these discussion and will be provided with recovery materials to continue to education self on how to cope with their condition without drinking. (5) Marijuana abuse: 01/04 - History of intensive outpatient treatment for cannabis abuse his senior year of high school, reports "just occasional" use since that time - Offer D&A counseling (6) Nicotine abuse: 01/04 - Nicotine replacement products ordered Risk Factors Assessment Do You Have Access To A Gun?: No Protective Factors Assessment Employed: No Interval History Identifying Information MIKE GONZALEZ is a 20-year-old M who currently lives in a dorm room on [facility] and reports outpatient diagnoses of anxiety, depression, OCD, and bipolar disorder. Pt was admitted on 01/04/21 06:18 on a 201 voluntary commitment for worsening depression and SI. Chief Complaint "Um, I don't know. I'm not good. I feel detached." Review of Systems Notes Constitutional: reports fatigue Cardiovascular: denied Respiratory: denied Gastrointestinal: denied Neurological: denied Psychiatric: denies symptoms other than stated above Total of at least 10 systems reviewed, pertinent positives as above and in HPI. Sleep Information Total Hours of Sleep: 8.5 Meal Information Percent Meal Consumed - Breakfast: 0 Percent Meal Consumed - Lunch: 10 Percent Meal Consumed - Dinner: 100 Nutrition Comment: pt. has poor appetite at this time Subjective Subjective Patient was seen & assessed and interval progress reviewed with treatment team. 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 He did attend a few evening groups. Pt was seen today to assess progress since admission. When asked how he is doing, the patient states "Um, I don't know. I'm not good. I feel detached." Pt states he feels a bit "foggy" and detached from reality in a way. He seemed to be distracted during conversation, and initially seemed resistant to elaborate. He did eventually share that he had been reading a section from the work-book on combatting negative self-talk. Pt states he was processing his belief that this pattern of thinking originated from pressure put on him by his mother to "be perfect." He states he was processing this and then was informed his parents were on the phone wishing to speak with him. Pt states "it just wasn't a good time, but I talked to them anyway and now I'm just, like, overwhelmed." Pt states the groups he's attended thus far are going well. He denies SI so far this morning, but continues to feel very depressed. He agrees to continue current dosage of sertraline for the time being, though we did discuss potential to continue the titration during his stay. Pt admits that after this morning's conversation with his parents he does not feel ready for a productive meeting - he was encouraged to at least consider scheduling one, maybe for a few days out. Pt denies other needs or concerns at this time. Physical Exam Psychiatric Orientation: alert, oriented x 3 and cooperative Apperance: appropriately dressed, + disheveled (hair unkempt, as patient is still laying in bed ) and appeared stated age Eye Contact: + fair eye contact Motor Behavior: no abnormal motor movements (observed while laying in bed) Speech: normal rate/rhythm/volume of speech Affect: + depressed affect and mood congruent with affect Mood: + depressed mood Thought Process: goal directed thought process and clear/coherent thought process Thought Content: + cognitive distortions, + hopelessness and + self deprecation Suicidal Thoughts: denies suicidal thoughts and denies suicidal intent Homicidal Thoughts: denies homicidal thoughts Hallucinations: no auditory hallucinations and no visual hallucinations Cognition: recent memory grossly intact, attention grossly intact and language grossly intact Estimated Intelligence: consistent with education level Insight: + limited insight Judgement: + limited judgement Vital Signs (Past 24 Hours) Last Vital Signs Temp 36.4 C L 01/05/21 06:00 Pulse 80 01/05/21 06:30 Resp 17 01/05/21 06:00 BP 95/60 L 01/05/21 06:30 Pulse Ox 97 01/04/21 06:44 Results & Data ([facility]) Current Inpatient Medications Current Inpatient Medications: Current Inpatient Medications Acetaminophen (Acetaminophen 325 Mg Tab) 650 mg PO Q4H PRN PRN Reason: Headache or Minor Fever Stop: 02/03/21 07:04 Al Hydrox/Mg Hydrox/Simethicone (Aluminum/Magnesium Susp 30 Ml Udc) 30 ml PO Q4H PRN PRN Reason: GI Upset Stop: 02/03/21 07:04 Bismuth Subsalicylate (Bismuth Subsalicylate Liqd 236 Ml) 15 ml PO PRN PRN PRN Reason: Loose Stool Stop: 02/03/21 07:04 Hydroxyzine HCl (Hydroxyzine Hcl 25 Mg Tab) 50 mg PO HSZ PRN PRN Reason: Insomnia Stop: 02/03/21 07:04 Hydroxyzine HCl (Hydroxyzine Hcl 25 Mg Tab) 25 mg PO Q4H PRN PRN Reason: Anxiety Stop: 02/03/21 07:04 Magnesium Hydroxide (Magnesium Hydroxide Susp 30 Ml Udc) 30 ml PO DAILY PRN PRN Reason: Constipation Stop: 02/03/21 07:04 Nicotine Polacrilex (Nicotine Polacrilex 2 Mg Gum) 1 piece MT PRN PRN PRN Reason: nicotine cravings Stop: 02/03/21 16:11 Quetiapine Fumarate (Quetiapine Fumarate 25 Mg Tablet) 25 mg PO HS JEREMIAS Stop: 02/03/21 21:59 Last Admin: 01/04/21 20:56 Dose: 25 mg Documented by: Sertraline HCl (Sertraline Hcl 100 Mg Tablet) 100 mg PO DAILY JEREMIAS Stop: 02/04/21 08:59 Last Admin: 01/05/21 09:26 Dose: 100 mg Documented by: Sodium Chloride (Sodium Chloride 0.65% Na Soln 45 Ml ([place])) 1 - 2 sprays NA PRN PRN PRN Reason: Nasal Dryness/Congestion Stop: 02/03/21 07:04 Mental Health & Subst Abuse Tx Therapist Name of Therapist: Katt Woods Date of Therapist Appointment: 01/11/21 Time of Therapist Appointment: 17:00-weekly phone/zoom mtgs on [facility] Sample Selector Name of Sample Selector: None Post Discharge Appointments Primary Care Physician Name Of Family Doctor: Dr. Vladimir Delacruz (Pin Worker) [phone] (1) Depression Active/Remission status: currently active Depression Type: major depressive disorder Major depression episode severity: severe Major depression recurrence: recurrent Psychotic features: without psychotic features Qualified Code(s): F33.2 - Major depressive disorder, recurrent severe without psychotic features
[2021-01-05] MEDS: QUEtiapine FUMARATE 25 MG TABLET PO SCH (22:07)
--- NOTE | 2021-01-06 07:57 | Psychiatric Progress Note ---
Date of Service January 06, 2021 Impression / Recommendations Impression 20-year-old male admitted voluntarily for inpatient psychiatric admission on 01/04/21 after presenting to the ED via police due to worsening depression and SI. [employer] petitioning statement was completed by girlfriend who reported the patient had made suicidal statements prior to admission and resisted attempts by supports to assist with the situation. Although patient had reportedly been drinking prior to these events, girlfriend did admit this is a pattern of behavior for the patient even when sober. Pt has historical diagnoses of "depression, anxiety, OCD, and bipolar disorder" but only reports clear criteria for major depressive disorder and generalized anxiety disorder. Pt also endorses regular episodes of binge drinking as well as "nicotine addiction" with a history of intensive outpatient rehab for marijuana use ~1 year ago. He does see a therapist, now remotely due to being back at school, and medications are prescribed by his PCP. Pt was agreeable with titrating his dose of sertraline and wished to continue quetiapine which was reportedly started for insomnia. Pt will be encouraged to attend group programming and participate in a support meeting with parents to discuss safety and discharge planning. At this time, the patient continues to be at acute risk of harm to himself if discharged prematurely. (1) Suicidal ideation: 01/04 - Admitted to a locked inpatient behavioral health unit, on q15 minute safety checks - Encourage medication initiation/adjustments as indicated - Encourage participation in group and recreational therapies - Gather collateral information from outpatient providers - Suggest family meeting to involve outpatient supports in safety planning - Arrange appropriate aftercare 01/05 - Denies SI currently, but ongoing depression with hopelessness 01/06 - Denies SI, increased hopefulness - More engaged in group programming within the past day (2) Depression: 01/04 - Working diagnosis of major depressive disorder, given that patient has been experiencing episodes of depression since early High School. Differential includes substance-induced depressive disorder, or dysthymic disorder. Patient denies symptoms consistent with adam/hypomania, but does report an outpatient diagnosis of bipolar disorder/bipolar depression. - Pt agreed to titration of sertraline to 100mg daily. Risks, benefits, and potential side effects reviewed - this included Black Box warning regarding risk of suicidality in children and adolescents. We discussed reports that suggest suicidal thoughts may be more intense since medication changes were made; however, this timeline is also consistent with increased alcohol use and several situational stressors this semester. Pt was offered a trial of an alternative antidepressant medication, but agreed to initial plan to titrate sertraline while closely monitoring for worsening suicidality. Alternative medications would ideally address vegetative depressive symptom as well as chronic anxiety. - Pt will be encouraged to attend group and recreational programming - assist with development of healthy and effective coping strategies - Discuss influence of substance use on mood and anxiety, encourage D&A counseling - Schedule family meeting - ideally with parents - Referral for outpatient psychiatry - likely continuing with current individual therapist via teletherapy - Discuss safety and discharge planning 01/05 - Continue sertraline 100mg qAM - consider further titration as tolerated/indicated - Continue quetiapine for insomnia (home medications); fasting lipid panel and glucose ordered for tomorrow morning - Encourage more active engagement with unit programming - Schedule meeting with parents - Referral for outpatient psychiatry 01/06 - Continue as above - patient reports episodes of diarrhea, unsure if related to titration of sertraline - Fasting lab reviewed: all values WNL - Patient processing being "on a break" with girlfriend in a positive way - Will need to schedule a family meeting with patient's parents - Refer for outpatient psychiatric services (3) Generalized anxiety disorder: 01/04 - Titrating sertraline as outlined above - Pt reports historical diagnosis of OCD and claims of "social anxiety", though reported anxiety is more consistent with "fear of missing out" or "fear that people don't like me or I'm not fitting in." - Encourage group attendance, 1:1 sessions as desired - Assist with development of healthy and effective coping strategies 01/05 - Continue as above - encourage more active participation in group programming - Hydroxyzine available as needed for anxiety (4) Alcohol abuse: 01/04 - Monitor vitals daily - behavior is more consistent with binge drinking, seems to be at low risk for withdrawal, but could order AWSS protocol if indicated. - Encourage D&A counseling to address these concerns in addition to his mood/anxiety symptoms - Brief intervention was offered and accepted Intervention (if performed) was greater than 5 min in length. Brief interventions include: 1. Assess Readiness to Quit, 2. Advise: Help Patient to Reduce or Abstain from Alcohol, 3. Agree: Set Specific, Feasible Goals, 4. Assist: Anticipate barriers, Problem-Solving Solutions. Social work to 5. Arrange: Referrals to appropriate treatment. Summary of intervention: The patient is in contemplation stage with regards to transtheoretical model of change. The patient is advised to decrease alcohol consumption due to depressant effects and risk of interactions with prescription medications. The patient agreed to continue these discussion and will be provided with recovery materials to continue to education self on how to cope with their condition without drinking. 01/06 - Pt has been processing the repercussions of his alcohol/substance use - reporting desire to continue to focus on these ideas (5) Marijuana abuse: 01/04 - History of intensive outpatient treatment for cannabis abuse his senior year of high school, reports "just occasional" use since that time - Offer D&A counseling (6) Nicotine abuse: 01/04 - Nicotine replacement products ordered Risk Factors Assessment Do You Have Access To A Gun?: No Protective Factors Assessment Employed: No Interval History Identifying Information MIKE GONZALEZ is a 20-year-old M who currently lives in a dorm room on [facility] and reports outpatient diagnoses of anxiety, depression, OCD, and bipolar disorder. Pt was admitted on 01/04/21 06:18 on a 201 voluntary commitment for worsening depression and SI. Chief Complaint "Um ok. Much better, I had a rougher morning yesterday." Review of Systems Notes Constitutional: denied Cardiovascular: denied Respiratory: denied Gastrointestinal: reports episodes of diarrhea Neurological: denied Psychiatric: denies symptoms other than stated above Total of at least 10 systems reviewed, pertinent positives as above and in HPI. Sleep Information Total Hours of Sleep: 36.4 Sleep Comments: pt on q-15 minute checks. pt NPO during the night Meal Information Percent Meal Consumed - Breakfast: 100 Percent Meal Consumed - Lunch: 10 Percent Meal Consumed - Dinner: 100 Nutrition Comment: pt. has poor appetite at this time Subjective Subjective Patient was seen & assessed and interval progress reviewed with nursing and social work. Staff report the patient isolated for most of the morning and afternoon yesterday, reporting he was feeling detached and foggy. Pt did attend community meeting last evening and surprisingly rated his mood an 8/10 and "content". A family meeting still needs to be scheduled with the patient's parents. Pt was seen today to assess progress since admission. Pt states he is feeling "much better, I had a rougher morning yesterday." He processed that he initially felt disconnect from the group and was struggling with processing the pressure he feels that has been put on him to be successful. He states he had a difficult phone call with his parents followed by a long conversation with his girlfriend, during which she requested "a break." Pt states "it wasn't the best conversation, but it was better than I expected. She processed with me that she's not giving up on me but wants to know that I'm doing this for myself and not for her." The patient states that surprisingly, her words helped to motivate him to dive into groups and focus more on his treatment. He states "I started reading my book and focusing on communication and self-esteem." Pt states the conversation ended with him feeling hopeful about reconciliation, despite it being difficult to process. Pt does admit he spent time journaling last evening and found himself being able to challenge his negative thoughts with thoughts about the benefits of a break. Pt denies SI, though he admits he was feeling significant anxiety throughout the day yesterday. Pt denies significant concerns related to his current medication regimen - though does admit to several episodes of diarrhea in the last two days. Pt feels he is ready to schedule a family meeting with his parents. Denied other needs or concerns today. Physical Exam Psychiatric Orientation: alert, oriented x 3 and cooperative (and pleasant; more upbeat and interested in conversation today) Apperance: appropriately dressed, appropriately groomed and appeared stated age Eye Contact: good eye contact Motor Behavior: steady gait and station and no abnormal motor movements Speech: normal rate/rhythm/volume of speech (more talkative today) Affect: euthymic affect (appearing suddenly much brighter today) Mood: + depressed mood (but reports significant improvement in challenging negative thinking) and + anxious mood Thought Process: goal directed thought process and clear/coherent thought process Thought Content: reality based without delusions; no hopelessness and no worthlessness Suicidal Thoughts: denies suicidal thoughts and denies suicidal intent Homicidal Thoughts: denies homicidal thoughts Hallucinations: no auditory hallucinations and no visual hallucinations Cognition: recent memory grossly intact, attention grossly intact and language grossly intact Estimated Intelligence: consistent with education level Insight: + fair insight Judgement: + fair judgement Vital Signs (Past 24 Hours) Last Vital Signs Temp 36.4 C L 01/06/21 06:52 Pulse 72 01/06/21 06:54 Resp 16 01/06/21 06:52 BP 100/58 L 01/06/21 06:54 Pulse Ox 97 01/04/21 06:44 Results & Data ([facility]) Current Inpatient Medications Current Inpatient Medications: Current Inpatient Medications Acetaminophen (Acetaminophen 325 Mg Tab) 650 mg PO Q4H PRN PRN Reason: Headache or Minor Fever Stop: 02/03/21 07:04 Al Hydrox/Mg Hydrox/Simethicone (Aluminum/Magnesium Susp 30 Ml Udc) 30 ml PO Q4H PRN PRN Reason: GI Upset Stop: 02/03/21 07:04 Bismuth Subsalicylate (Bismuth Subsalicylate Liqd 236 Ml) 15 ml PO PRN PRN PRN Reason: Loose Stool Stop: 02/03/21 07:04 Hydroxyzine HCl (Hydroxyzine Hcl 25 Mg Tab) 50 mg PO HSZ PRN PRN Reason: Insomnia Stop: 02/03/21 07:04 Hydroxyzine HCl (Hydroxyzine Hcl 25 Mg Tab) 25 mg PO Q4H PRN PRN Reason: Anxiety Stop: 02/03/21 07:04 Magnesium Hydroxide (Magnesium Hydroxide Susp 30 Ml Udc) 30 ml PO DAILY PRN PRN Reason: Constipation Stop: 02/03/21 07:04 Nicotine Polacrilex (Nicotine Polacrilex 2 Mg Gum) 1 piece MT PRN PRN PRN Reason: nicotine cravings Stop: 02/03/21 16:11 Quetiapine Fumarate (Quetiapine Fumarate 25 Mg Tablet) 25 mg PO HS JEREMIAS Stop: 02/03/21 21:59 Last Admin: 01/05/21 22:07 Dose: 25 mg Documented by: Sertraline HCl (Sertraline Hcl 100 Mg Tablet) 100 mg PO DAILY JEREMIAS Stop: 02/04/21 08:59 Last Admin: 01/05/21 09:26 Dose: 100 mg Documented by: Sodium Chloride (Sodium Chloride 0.65% Na Soln 45 Ml ([place])) 1 - 2 sprays NA PRN PRN PRN Reason: Nasal Dryness/Congestion Stop: 02/03/21 07:04 Mental Health & Subst Abuse Tx Therapist Name of Therapist: Katt Woods Therapist's Date of Therapist Appointment: 01/11/21 Time of Therapist Appointment: 17:00-weekly phone/zoom mtgs on [facility] Therapy Appointment Comment: [address], [place] [address] Management Consultant Name of Management Consultant: None Post Discharge Appointments Primary Care Physician Name Of Family Doctor: Dr. Vladimir Delacruz-Change Management Specialist Primary Care (1) Depression Active/Remission status: currently active Depression Type: major depressive disorder Major depression episode severity: severe Major depression recurrence: recurrent Psychotic features: without psychotic features Qualified Code(s): F33.2 - Major depressive disorder, recurrent severe without psychotic features
[2021-01-06] MEDS: SERTRALINE HCL 100 MG TABLET PO SCH (08:55)
[2021-01-06 09:06] LABS: Glucose Fasting 88 mg/dl (70-99)
[2021-01-06 09:12] LABS: Chol HDL Ratio 4; Cholesterol 144 mg/dl (0-200); HDL Cholesterol 34 mg/dl; LDL Cholesterol Calculated 91 mg/dl; Triglycerides 94 mg/dl (0-150); VLDL Cholesterol 19 mg/dl
[2021-01-06] MEDS: QUEtiapine FUMARATE 25 MG TABLET PO SCH (21:03)
--- NOTE | 2021-01-07 08:10 | Psychiatric Progress Note ---
Date of Service January 07, 2021 Impression / Recommendations Impression 20-year-old male admitted voluntarily for inpatient psychiatric admission on 01/04/21 after presenting to the ED via police due to worsening depression and SI. [employer]-up [employer] petitioning statement was completed by girlfriend who reported the patient had made suicidal statements prior to admission and resisted attempts by supports to assist with the situation. Although patient had reportedly been drinking prior to these events, girlfriend did admit this is a pattern of behavior for the patient even when sober. Pt has historical diagnoses of "depression, anxiety, OCD, and bipolar disorder" but only reports clear criteria for major depressive disorder and generalized anxiety disorder. Pt also endorses regular episodes of binge drinking as well as "nicotine addiction" with a history of intensive outpatient rehab for marijuana use ~1 year ago. He does see a therapist, now remotely due to being back at school, and medications are prescribed by his PCP. Pt was agreeable with titrating his dose of sertraline and wished to continue quetiapine which was reportedly started for insomnia. Pt will be encouraged to attend group programming and participate in a support meeting with parents to discuss safety and discharge planning. At this time, the patient continues to be at acute risk of harm to himself if discharged prematurely. (1) Suicidal ideation: 01/04 - Admitted to a locked inpatient behavioral health unit, on q15 minute safety checks - Encourage medication initiation/adjustments as indicated - Encourage participation in group and recreational therapies - Gather collateral information from outpatient providers - Suggest family meeting to involve outpatient supports in safety planning - Arrange appropriate aftercare 01/05 - Denies SI currently, but ongoing depression with hopelessness 01/06 - Denies SI, increased hopefulness - More engaged in group programming within the past day 01/07 - Continues to deny SI (2) Depression: 01/04 - Working diagnosis of major depressive disorder, given that patient has been experiencing episodes of depression since early High School. Differential includes substance-induced depressive disorder, or dysthymic disorder. Patient denies symptoms consistent with adam/hypomania, but does report an outpatient diagnosis of bipolar disorder/bipolar depression. - Pt agreed to titration of sertraline to 100mg daily. Risks, benefits, and potential side effects reviewed - this included Black Box warning regarding risk of suicidality in children and adolescents. We discussed reports that suggest suicidal thoughts may be more intense since medication changes were made; however, this timeline is also consistent with increased alcohol use and several situational stressors this semester. Pt was offered a trial of an alternative antidepressant medication, but agreed to initial plan to titrate sertraline while closely monitoring for worsening suicidality. Alternative medications would ideally address vegetative depressive symptom as well as chronic anxiety. - Pt will be encouraged to attend group and recreational programming - assist with development of healthy and effective coping strategies - Discuss influence of substance use on mood and anxiety, encourage D&A counseling - Schedule family meeting - ideally with parents - Referral for outpatient psychiatry - likely continuing with current individual therapist via teletherapy - Discuss safety and discharge planning 01/05 - Continue sertraline 100mg qAM - consider further titration as tolerated/indica rudy - Continue quetiapine for insomnia (home medications); fasting lipid panel and glucose ordered for tomorrow morning - Encourage more active engagement with unit programming - Schedule meeting with parents - Referral for outpatient psychiatry 01/06 - Continue as above - patient reports episodes of diarrhea, unsure if related to titration of sertraline - Fasting lab reviewed: all values WNL - Patient processing being "on a break" with girlfriend in a positive way - Will need to schedule a family meeting with patient's parents - Refer for outpatient psychiatric services 01/07 - Continue current medication regimen - patient reports feeling nervous about family meeting but otherwise mood has been improved overall - Continues to be engaging with peers, attending groups and processing stressors - Pt will still require psychiatry services for medication management - Family meeting with parents this morning - Encourage completion of written safety plan (3) Generalized anxiety disorder: 01/04 - Titrating sertraline as outlined above - Pt reports historical diagnosis of OCD and claims of "social anxiety", though reported anxiety is more consistent with "fear of missing out" or "fear that people don't like me or I'm not fitting in." - Encourage group attendance, 1:1 sessions as desired - Assist with development of healthy and effective coping strategies 01/05 - Continue as above - encourage more active participation in group programming - Hydroxyzine available as needed for anxiety (4) Alcohol abuse: 01/04 - Monitor vitals daily - behavior is more consistent with binge drinking, seems to be at low risk for withdrawal, but could order AWSS protocol if indicated. - Encourage D&A counseling to address these concerns in addition to his mood/anxiety symptoms - Brief intervention was offered and accepted Intervention (if performed) was greater than 5 min in length. Brief interventions include: 1. Assess Readiness to Quit, 2. Advise: Help Patient to Reduce or Abstain from Alcohol, 3. Agree: Set Specific, Feasible Goals, 4. Assist: Anticipate barriers, Problem-Solving Solutions. Social work to 5. Arrange: Referrals to appropriate treatment. Summary of intervention: The patient is in contemplation stage with regards to transtheoretical model of change. The patient is advised to decrease alcohol consumption due to depressant effects and risk of interactions with prescription medications. The patient agreed to continue these discussion and will be provided with recovery materials to continue to education self on how to cope with their condition without drinking. 01/06 - Pt has been processing the repercussions of his alcohol/substance use - reporting desire to continue to focus on these ideas (5) Marijuana abuse: 01/04 - History of intensive outpatient treatment for cannabis abuse his senior year of high school, reports "just occasional" use since that time - Offer D&A counseling (6) Nicotine abuse: 01/04 - Nicotine replacement products ordered Risk Factors Assessment Do You Have Access To A Gun?: No Protective Factors Assessment Employed: No Interval History Identifying Information MIKE GONZALEZ is a 20-year-old M who currently lives in a dorm room on [facility] campus and reports outpatient diagnoses of anxiety, depression, OCD, and bipolar disorder. Pt was admitted on 01/04/21 06:18 on a 201 voluntary commitment for worsening depression and SI. Chief Complaint "Tired. I just found out it's Daylight Savings Time, I lost an hour. So I'm feeling pretty grumpy." Review of Systems Notes Constitutional: reports fatigue Cardiovascular: denied Respiratory: denied Gastrointestinal: denied Neurological: denied Psychiatric: denies symptoms other than stated above Total of at least 10 systems reviewed, pertinent positives as above and in HPI. Sleep Information Total Hours of Sleep: 5.5 Sleep Comments: pt on q-15 minute checks. pt NPO during the night Meal Information Percent Meal Consumed - Breakfast: 100 Percent Meal Consumed - Lunch: 100 Percent Meal Consumed - Dinner: 100 Nutrition Comment: pt. has poor appetite at this time Subjective Subjective Patient was seen & assessed and interval progress reviewed with nursing and social work. Staff report the patient has been processing the "break" he and his girlfriend agreed to. He has been out of his room and interactive with peers. Pt rated his mood an 8/10 and "hopeful" last evening. Pt does have a family meeting scheduled for later this morning with his parents. Pt was seen today to assess progress since admission. Pt states "I'm tired. I just found out it's Daylight Savings Time, I lost an hour. So I'm feeling pretty grumpy." Pt states that fatigue contributes to low mood, and he was able to notice himself feeling more depressed this morning. Pt states "so I came in my room to chill out and cuddle my stuffed animals." Pt states that he is a bit nervous for his family meeting, admitting "there is something I eventually should discuss, I'm just not sure if now is the right time." Pt shares that he knows his parents love him and care about him, but at times he feels they are smothering and overbearing - "and that keeps me from developing independence and doing things for myself. It also makes it hard to tell them things, I don't want them to fix everything." Pt was encouraged to at least begin this conversation today, with awareness that it may be an ongoing subject to continue to process over time. Pt stated he did feel he could bring this up, but was just worried about "hurting their feelings or it coming off that they're actions are the reason I'm here." Pt reports he is tolerating his medication regimen and doing well in general. He denies other needs or concerns today. Physical Exam Psychiatric Orientation: alert, oriented x 3 and cooperative Apperance: appropriately dressed, appropriately groomed and appeared stated age Eye Contact: good eye contact Motor Behavior: no abnormal motor movements (observed while laying in bed) Speech: normal rate/rhythm/volume of speech Affect: + depressed affect (mildly so, still much improved when compared to admission) Mood: + depressed mood (states this is specifically related to feeling tired - "grumpy" in the AM); no anxious mood Thought Process: goal directed thought process and clear/coherent thought process Thought Content: reality based without delusions; no hopelessness and no worthlessness Suicidal Thoughts: denies suicidal thoughts and denies suicidal intent Homicidal Thoughts: denies homicidal thoughts Hallucinations: no auditory hallucinations and no visual hallucinations Cognition: recent memory grossly intact, attention grossly intact and language grossly intact Estimated Intelligence: consistent with education level Insight: + fair insight Judgement: + fair judgement Vital Signs (Past 24 Hours) Last Vital Signs Temp 36.4 C L 01/07/21 06:46 Pulse 66 01/07/21 06:47 Resp 16 01/07/21 06:46 BP 98/59 L 01/07/21 06:47 Pulse Ox 97 01/04/21 06:44 Results & Data ([facility]) Laboratory Results Laboratory Results - last 24 hr 01/06/21 08:04 Fasting Glucose 88 Triglycerides 94 Cholesterol 144 LDL Cholesterol, Calc 91 VLDL Cholesterol, Calc 19 HDL Cholesterol 34 Cholesterol/HDL Ratio 4 Current Inpatient Medications Current Inpatient Medications: Current Inpatient Medications Acetaminophen (Acetaminophen 325 Mg Tab) 650 mg PO Q4H PRN PRN Reason: Headache or Minor Fever Stop: 02/03/21 07:04 Al Hydrox/Mg Hydrox/Simethicone (Aluminum/Magnesium Susp 30 Ml Udc) 30 ml PO Q4H PRN PRN Reason: GI Upset Stop: 02/03/21 07:04 Bismuth Subsalicylate (Bismuth Subsalicylate Liqd 236 Ml) 15 ml PO PRN PRN PRN Reason: Loose Stool Stop: 02/03/21 07:04 Hydroxyzine HCl (Hydroxyzine Hcl 25 Mg Tab) 50 mg PO HSZ PRN PRN Reason: Insomnia Stop: 02/03/21 07:04 Hydroxyzine HCl (Hydroxyzine Hcl 25 Mg Tab) 25 mg PO Q4H PRN PRN Reason: Anxiety Stop: 02/03/21 07:04 Magnesium Hydroxide (Magnesium Hydroxide Susp 30 Ml Udc) 30 ml PO DAILY PRN PRN Reason: Constipation Stop: 02/03/21 07:04 Nicotine Polacrilex (Nicotine Polacrilex 2 Mg Gum) 1 piece MT PRN PRN PRN Reason: nicotine cravings Stop: 02/03/21 16:11 Quetiapine Fumarate (Quetiapine Fumarate 25 Mg Tablet) 25 mg PO HS JEREMIAS Stop: 02/03/21 21:59 Last Admin: 01/06/21 21:03 Dose: 25 mg Documented by: Sertraline HCl (Sertraline Hcl 100 Mg Tablet) 100 mg PO DAILY JEREMIAS Stop: 02/04/21 08:59 Last Admin: 01/06/21 08:55 Dose: 100 mg Documented by: Sodium Chloride (Sodium Chloride 0.65% Na Soln 45 Ml ([place])) 1 - 2 sprays NA PRN PRN PRN Reason: Nasal Dryness/Congestion Stop: 02/03/21 07:04 Mental Health & Subst Abuse Tx Therapist Name of Therapist: Katt Woods Therapist's Date of Therapist Appointment: 01/11/21 Time of Therapist Appointment: 17:00-weekly phone/zoom mtgs on [facility] Therapy Appointment Comment: [address] [place], [place] [address] [address] Typesetting Machine Tender Name of Typesetting Machine Tender: [employer] [facility] [employer] Phone Number for Typesetting Machine Tender: [phone] Case Management Appointment Comment: Will follow up via telephone with you Post Discharge Appointments Primary Care Physician Name Of Family Doctor: Dr. Vladimir Delacruz-Melter Supervisor [employer] [facility] Contact Information Discharge Discharge [address]: [address] [place] [address] (1) Depression Active/Remission status: currently active Depression Type: major depressive disorder Major depression episode severity: severe Major depression recurrence : recurrent Psychotic features: without psychotic features Qualified Code(s): F33.2 - Major depressive disorder, recurrent severe without psychotic features
[2021-01-07] MEDS: SERTRALINE HCL 100 MG TABLET PO SCH (08:52)
[2021-01-07] MEDS: QUEtiapine FUMARATE 25 MG TABLET PO SCH (22:07)
[2021-01-08] MEDS: SERTRALINE HCL 100 MG TABLET PO SCH (08:48)
--- NOTE | 2021-01-08 08:50 | Psychiatric Progress Note ---
Date of Service January 08, 2021 Impression / Recommendations Impression 20-year-old male admitted voluntarily for inpatient psychiatric admission on 01/04/21 after presenting to the ED via police due to worsening depression and SI. Back-up 302 petitioning statement was completed by girlfriend who reported the patient had made suicidal statements prior to admission and resisted attempts by supports to assist with the situation. Although patient had reportedly been drinking prior to these events, girlfriend did admit this is a pattern of behavior for the patient even when sober. Pt has historical diagnoses of "depression, anxiety, OCD, and bipolar disorder" but only reports clear criteria for major depressive disorder and generalized anxiety disorder. Pt also endorses regular episodes of binge drinking as well as "nicotine addiction" with a history of intensive outpatient rehab for marijuana use ~1 year ago. He does see a therapist, now remotely due to being back at school, and medications are prescribed by his PCP. Pt was agreeable with titrating his dose of sertraline and wished to continue quetiapine which was reportedly started for insomnia. Pt has been attending group programming and interacting with peers. Family meeting was reportedly a bit overwhelming, but patient did well at articulating his needs. Pt still requires a psychiatric provider prior to consideration of discharge. (1) Suicidal ideation: 01/04 - Admitted to a locked inpatient behavioral health unit, on q15 minute safety checks - Encourage medication initiation/adjustments as indicated - Encourage participation in group and recreational therapies - Gather collateral information from outpatient providers - Suggest family meeting to involve outpatient supports in safety planning - Arrange appropriate aftercare 01/05 - Denies SI currently, but ongoing depression with hopelessness 01/06 - Denies SI, increased hopefulness - More engaged in group programming within the past day 01/07 - 01/08 - Continues to deny SI (2) Depression: 01/04 - Working diagnosis of major depressive disorder, given that patient has been experiencing episodes of depression since early High School. Differential includes substance-induced depressive disorder, or dysthymic disorder. Patient denies symptoms consistent with adam/hypomania, but does report an outpatient diagnosis of bipolar disorder/bipolar depression. - Pt agreed to titration of sertraline to 100mg daily. Risks, benefits, and potential side effects reviewed - this included Black Box warning regarding risk of suicidality in children and adolescents. We discussed reports that suggest suicidal thoughts may be more intense since medication changes were made; however, this timeline is also consistent with increased alcohol use and several situational stressors this semester. Pt was offered a trial of an alternative antidepressant medication, but agreed to initial plan to titrate sertraline while closely monitoring for worsening suicidality. Alternative medications would ideally address vegetative depressive symptom as well as chronic anxiety. - Pt will be encouraged to attend group and recreational programming - assist with development of healthy and effective coping strategies - Discuss influence of substance use on mood and anxiety, encourage D&A counseling - Schedule family meeting - ideally with parents - Referral for outpatient psychiatry - likely continuing with current individual therapist via teletherapy - Discuss safety and discharge planning 01/05 - Continue sertraline 100mg qAM - consider further titration as tolerate d/indicated - Continue quetiapine for insomnia (home medications); fasting lipid panel and glucose ordered for tomorrow morning - Encourage more active engagement with unit programming - Schedule meeting with parents - Referral for outpatient psychiatry 01/06 - Continue as above - patient reports episodes of diarrhea, unsure if related to titration of sertraline - Fasting lab reviewed: all values WNL - Patient processing being "on a break" with girlfriend in a positive way - Will need to schedule a family meeting with patient's parents - Refer for outpatient psychiatric services 01/07 - Continue current medication regimen - patient reports feeling nervous about family meeting but otherwise mood has been improved overall - Continues to be engaging with peers, attending groups and processing stressors - Pt will still require psychiatry services for medication management - Family meeting with parents this morning - Encourage completion of written safety plan 01/08 - Pt reports lower mood in the morning, generally due to lingering fatigue - Continue sertraline 100mg. We did discuss ongoing difficulty sleeping due to racing thoughts - Discussed with patient that this is a rather potent medication for insomnia and offered a trial of hydroxyzine; patient indicated he was started on the medication for "mood stuff" as well. Will offer an as needed second dose of quetiapine. - Pt seems to be benefiting from group programming - Family meeting with parents yesterday - somewhat overwhelming, but ultimately supportive - Consider discharge within the next few days. (3) Generalized anxiety disorder: 01/04 - Titrating sertraline as outlined above - Pt reports historical diagnosis of OCD and claims of "social anxiety", though reported anxiety is more consistent with "fear of missing out" or "fear that people don't like me or I'm not fitting in." - Encourage group attendance, 1:1 sessions as desired - Assist with development of healthy and effective coping strategies 01/05 - Continue as above - encourage more active participation in group programming - Hydroxyzine available as needed for anxiety 01/08 - Admits to episodes of anxiety, generally situational - patient has been finding coping skills, specifically journaling, to be helpful - Offer second prn dose of quetiapine for insomnia related to racing thoughts; patient also encouraged to consider prn hydroxyzine (4) Alcohol abuse: 01/04 - Monitor vitals daily - behavior is more consistent with binge drinking, seems to be at low risk for withdrawal, but could order AWSS protocol if indicated. - Encourage D&A counseling to address these concerns in addition to his mood/anxiety symptoms - Brief intervention was offered and accepted Intervention (if performed) was greater than 5 min in length. Brief interventions include: 1. Assess Readiness to Quit, 2. Advise: Help Patient to Reduce or Abstain from Alcohol, 3. Agree: Set Specific, Feasible Goals, 4. Assist: Anticipate barriers, Problem-Solving Solutions. Social work to 5. Arrange: Referrals to appropriate treatment. Summary of intervention: The patient is in contemplation stage with regards to transtheoretical model of change. The patient is advised to decrease alcohol consumption due to depressant effects and risk of interactions with prescription medications. The patient agreed to continue these discussion and will be provided with recovery materials to continue to education self on how to cope with their condition without drinking. 01/06 - Pt has been processing the repercussions of his alcohol/substance use - reporting desire to continue to focus on these ideas 01/08 - Pt continues to processing the negative impact of his binge drinking - reporting desire to abstain from alcohol - Recommend ongoing discussion in individual therapy (5) Marijuana abuse: 01/04 - History of intensive outpatient treatment for cannabis abuse his senior year of high school, reports "just occasional" use since that time - Offer D&A counseling (6) Nicotine abuse: 01/04 - Nicotine replacement products ordered Risk Factors Assessment Do You Have Access To A Gun?: No Protective Factors Assessment Employed: No Interval History Identifying Information MIKE GONZALEZ is a 20-year-old M who currently lives in a dorm room on [facility] and reports outpatient diagnoses of anxiety, depression, OCD, and bipolar disorder. Pt was admitted on 01/04/21 06:18 on a 201 voluntary commitment for worsening depression and SI. Chief Complaint "I was feeling a little overwhelmed". Review of Systems Notes Constitutional: reports fatigue Cardiovascular: denied Respiratory: denied Gastrointestinal: denied Neurological: denied Psychiatric: denies symptoms other than stated above Total of at least 10 systems reviewed, pertinent positives as above and in HPI. Sleep Information Total Hours of Sleep: 6.5 Sleep Comments: pt on q-15 minute checks Meal Information Percent Meal Consumed - Breakfast: 90 Percent Meal Consumed - Lunch: 90 Percent Meal Consumed - Dinner: 100 Nutrition Comment: pt. has poor appetite at this time Subjective Subjective Patient was seen & assessed and interval progress reviewed with treatment team. Staff report the patient has been doing well, out of room regularly, and interactive with peers. Pt did have what was reported to be a somewhat overwhelming meeting with parents yesterday, but all agreed patient would continue at school and our team would support with aftercare referrals. He had reported a mood a 7/10 and "connected and present" last evening. Pt was seen today to assess progress since admission. Pt was interviewed while in his room after breakfast. He shares that he came back to his room for "some space" reporting "I was feeling a little overwhelmed." The patient states that there was quite a bit of conversation and laughing at breakfast, also weekday staff introducing themselves. Pt states "It was a bit much, so I came in here and did some journaling. I wrote that I was overwhelmed but that I still plan to have a good day. Then I did some deep breathing and I'm feeling a little better now." Pt states that staff reviewed his treatment plan with him, and he admitted that he was not expecting to be discussing discharge - which contributed to his anxiety. He states he was proud of himself for being about to articulate that he was nervous about this topic, but ultimately admits that he feels ready to leave within the timeline estimated. Pt admits to lower mood in the morning due to fatigue, but otherwise states he has been doing pretty well. Conversation was focused on steps he can take now to prepare for discharge, and changes he may wish to make to his routine/coping skills in order to promote stability after discharge. Pt denies SI as well as other needs or concerns at this time. Physical Exam Psychiatric Orientation: alert, oriented x 3 and cooperative Apperance: appropriately dressed, + disheveled (hair appearing unkempt, sticking up in places ) and appeared stated age Eye Contact: good eye contact Motor Behavior: no abnormal motor movements (observed while laying in bed) Speech: normal rate/rhythm/volume of speech Affect: + blunted affect (appearing subdued, fatigued) Mood: + anxious mood ("I'm was feeling a little overwhelmed") Thought Process: goal directed thought process and clear/coherent thought process Thought Content: reality based without delusions; no hopelessness and no worthlessness Suicidal Thoughts: denies suicidal thoughts, denies suicidal plan and denies suicidal intent Homicidal Thoughts: denies homicidal thoughts Hallucinations: no auditory hallucinations and no visual hallucinations Cognition: recent memory grossly intact, attention grossly intact and language grossly intact Estimated Intelligence: consistent with education level Insight: + fair insight Judgement: + fair judgement Vital Signs (Past 24 Hours) Last Vital Signs Temp 36.3 C L 01/08/21 06:47 Pulse 71 01/08/21 06:48 Resp 16 01/08/21 06:47 BP 96/61 L 01/08/21 06:48 Pulse Ox 97 01/04/21 06:44 Results & Data ([facility]) Current Inpatient Medications Current Inpatient Medications: Current Inpatient Medications Acetaminophen (Acetaminophen 325 Mg Tab) 650 mg PO Q4H PRN PRN Reason: Headache or Minor Fever Stop: 02/03/21 07:04 Al Hydrox/Mg Hydrox/Simethicone (Aluminum/Magnesium Susp 30 Ml Udc) 30 ml PO Q4H PRN PRN Reason: GI Upset Stop: 02/03/21 07:04 Bismuth Subsalicylate (Bismuth Subsalicylate Liqd 236 Ml) 15 ml PO PRN PRN PRN Reason: Loose Stool Stop: 02/03/21 07:04 Hydroxyzine HCl (Hydroxyzine Hcl 25 Mg Tab) 50 mg PO HSZ PRN PRN Reason: Insomnia Stop: 02/03/21 07:04 Hydroxyzine HCl (Hydroxyzine Hcl 25 Mg Tab) 25 mg PO Q4H PRN PRN Reason: Anxiety Stop: 02/03/21 07:04 Magnesium Hydroxide (Magnesium Hydroxide Susp 30 Ml Udc) 30 ml PO DAILY PRN PRN Reason: Constipation Stop: 02/03/21 07:04 Nicotine Polacrilex (Nicotine Polacrilex 2 Mg Gum) 1 piece MT PRN PRN PRN Reason: nicotine cravings Stop: 02/03/21 16:11 Quetiapine Fumarate (Quetiapine Fumarate 25 Mg Tablet) 25 mg PO HS JEREMIAS Stop: 02/03/21 21:59 Last Admin: 01/07/21 22:07 Dose: 25 mg Documented by: Sertraline HCl (Sertraline Hcl 100 Mg Tablet) 100 mg PO DAILY JEREMIAS Stop: 02/04/21 08:59 Last Admin: 01/07/21 08:52 Dose: 100 mg Documented by: Sodium Chloride (Sodium Chloride 0.65% Na Soln 45 Ml ([place])) 1 - 2 sprays NA PRN PRN PRN Reason: Nasal Dryness/Congestion Stop: 02/03/21 07:04 Mental Health & Subst Abuse Tx Therapist Name of Therapist: Katt Woods Therapist's Date of Therapist Appointment: 01/11/21 Time of Therapist Appointment: 5:00 p.m. 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 Vladimir Delacruz (Cardiopulmonary Specialist) Primary Care Provider Appointment Comment: [address] [place] [address] [facility] [address] [address] Contact Information Discharge Discharge Address: [address] [place] [address] (1) Depression Active/Remission status: currently active Depression Type: major depressive disorder Major depression episode severity: severe Major depression recurrence: recurrent Psychotic features: without psychotic features Qualified Code(s): F33.2 - Major depressive disorder, recurrent severe without psychotic features
[2021-01-08] MEDS: QUEtiapine FUMARATE 25 MG TABLET PO SCH (21:27)
[2021-01-09] MEDS: SERTRALINE HCL 100 MG TABLET PO SCH (09:05)
--- NOTE | 2021-01-09 11:04 | Psychiatric Progress Note ---
Date of Service January 09, 2021 Impression / Recommendations Impression 20-year-old male admitted voluntarily for inpatient psychiatric admission on 01/04/21 after presenting to the ED via police due to worsening depression and SI. Symptoms improving, sleep still suboptimal and will adjust HS med. (1) Suicidal ideation: 01/04 - Admitted to a locked inpatient behavioral health unit, on q15 minute safety checks - Encourage medication initiation/adjustments as indicated - Encourage participation in group and recreational therapies - Gather collateral information from outpatient providers - Suggest family meeting to involve outpatient supports in safety planning - Arrange appropriate aftercare 01/05 - Denies SI currently, but ongoing depression with hopelessness 01/06 - Denies SI, increased hopefulness - More engaged in group programming within the past day 01/07 - 01/08 - Continues to deny SI 01/09 - Working on discharge safety plan. (2) Depression: 01/04 - Working diagnosis of major depressive disorder, given that patient has been experiencing episodes of depression since early High School. Differential includes substance-induced depressive disorder, or dysthymic disorder. Patient denies symptoms consistent with adam/hypomania, but does report an outpatient diagnosis of bipolar disorder/bipolar depression. - Pt agreed to titration of sertraline to 100mg daily. Risks, benefits, and potential side effects reviewed - this included Black Box warning regarding risk of suicidality in children and adolescents. We discussed reports that suggest suicidal thoughts may be more intense since medication changes were made; however, this timeline is also consistent with increased alcohol use and several situational stressors this semester. Pt was offered a trial of an alternative antidepressant medication, but agreed to initial plan to titrate sertraline while closely monitoring for worsening suicidality. Alternative medications would ideally address vegetative depressive symptom as well as chronic anxiety. - Pt will be encouraged to attend group and recreational programming - assist with development of healthy and effective coping strategies - Discuss influence of substance use on mood and anxiety, encourage D&A counseling - Schedule family meeting - ideally with parents - Referral for outpatient psychiatry - likely continuing with current individual therapist via teletherapy - Discuss safety and discharge planning 01/05 - Continue sertraline 100mg qAM - consider further titration as tolerated/indicated - Continue quetiapine for insomnia (home medications); fasting lipid panel and glucose ordered for tomorrow morning - Encourage more active engagement with unit programming - Schedule meeting with parents - Referral for outpatient psychiatry 01/06 - Continue as above - patient reports episodes of diarrhea, unsure if related to titration of sertraline - Fasting lab reviewed: all values WNL - Patient processing being "on a break" with girlfriend in a positive way - Will need to schedule a family meeting with patient's parents - Refer for outpatient psychiatric services 01/07 - Continue current medication regimen - patient reports feeling nervous about family meeting but otherwise mood has been improved overall - Continues to be engaging with peers, attending groups and processing stressors - Pt will still require psychiatry services for medication management - Family meeting with parents this morning - Encourage completion of written safety plan 01/08 - Pt reports lower mood in the morning, generally due to lingering fatigue - Continue sertraline 100mg. We did discuss ongoing difficulty sleeping due to racing thoughts - Discussed with patient that this is a rather potent medication for insomnia and offered a trial of hydroxyzine; patient indicated he was started on the medication for "mood stuff" as well. Will offer an as needed second dose of quetiapine. - Pt seems to be benefiting from group programming - Family meeting with parents yesterday - somewhat overwhelming, but ultimately supportive - Consider discharge within the next few days. 01/09 - Continue sertraline 100 mg, increase quetiapine to 50 mg at bedtime to target sleep and racing thoughts. - Increasing outpatient therapy to twice weekly, in the process of referring for outpatient psychiatric care. (3) Generalized anxiety disorder: 01/04 - Titrating sertraline as outlined above - Pt reports historical diagnosis of OCD and claims of "social anxiety", though reported anxiety is more consistent with "fear of missing out" or "fear that people don't like me or I'm not fitting in." - Encourage group attendance, 1:1 sessions as desired - Assist with development of healthy and effective coping strategies 01/05 - Continue as above - encourage more active participation in group programming - Hydroxyzine available as needed for anxiety 01/08 - Admits to episodes of anxiety, generally situational - patient has been finding coping skills, specifically journaling, to be helpful - Offer second prn dose of quetiapine for insomnia related to racing thoughts; patient also encouraged to consider prn hydroxyzine (4) Alcohol abuse: 01/04 - Monitor vitals daily - behavior is more consistent with binge drinking, seems to be at low risk for withdrawal, but could order AWSS protocol if indicated. - Encourage D&A counseling to address these concerns in addition to his mood/anxiety symptoms - Brief intervention was offered and accepted Intervention (if performed) was greater than 5 min in length. Brief interventions include: 1. Assess Readiness to Quit, 2. Advise: Help Patient to Reduce or Abstain from Alcohol, 3. Agree: Set Specific, Feasible Goals, 4. Assist: Anticipate barriers, Problem-Solving Solutions. Social work to 5. Arrange: Referrals to appropriate treatment. Summary of intervention: The patient is in contemplation stage with regards to transtheoretical model of change. The patient is advised to decrease alcohol consumption due to depressant effects and risk of interactions with prescription medications. The patient agreed to continue these discussion and will be provided with recovery materials to continue to education self on how to cope with their condition without drinking. 01/06 - Pt has been processing the repercussions of his alcohol/substance use - reporting desire to continue to focus on these ideas 01/08 - Pt continues to processing the negative impact of his binge drinking - reporting desire to abstain from alcohol - Recommend ongoing discussion in individual therapy (5) Marijuana abuse: 01/04 - History of intensive outpatient treatment for cannabis abuse his senior year of high school, reports "just occasional" use since that time - Offer D&A counseling (6) Nicotine abuse: 01/04 - Nicotine replacement products ordered Risk Factors Assessment Male: Yes : Yes Do You Have Access To A Gun?: No Health Problems: No Mental Health Diagnoses: Yes Substance Use Disorders: Yes Previous Attempt: Yes Previous Attempt; Highly Lethal: No Previous Psychiatric Hospitalization: No Hopelessness: No Smoker: No Protective Factors Assessment : No Responsible for Young Children: No Employed: No Stable Relationships: Yes Supportive Family: Yes Good Rapport with Provider: Yes Interval History Identifying Information MIKE GONZALEZ is a 20-year-old M who currently lives in a dorm room on [facility] campus and reports outpatient diagnoses of anxiety, depression, OCD, and bipolar disorder. Pt was admitted on 01/04/21 06:18 on a 201 voluntary commitment for worsening depression and SI. Chief Complaint "I'm feeling better, from where I was at". Review of Systems Sleep Information Total Hours of Sleep: 6.5 Sleep Comments: pt on q-15 minute checks Meal Information Percent Meal Consumed - Breakfast: 90 Percent Meal Consumed - Lunch: 100 Percent Meal Consumed - Dinner: 100 Nutrition Comment: pt. has poor appetite at this time Subjective Subjective Patient was seen & assessed and interval progress reviewed with nursing and social work. Staff report he is going to groups and participating in therapy. On my assessment, he reports his mood is improving, and he is proud of himself for coming to treatment, stating he always thought about himself as weak for struggling with mental illness, but now is "changing the narrative, I'm proud of myself for dealing with this." He feels his self esteem is better than it's ever been and that he feels like a stronger person. He has been able to communicate with his family and feels supported by them. He is eating well, sleep is improved but still suboptimal, vivid dreams, difficulty falling asleep w/ racing thoughts, and would like to increase the Seroquel. Tolerating meds well and thinks it is helpful to be on a daily schedule, plans to set alarms on phone at home to stay on schedule with meds. He thinks he will be ready for discharge tomorrow, and has talked to his therapist about increasing sessions to twice weekly. He feels safe here, but feels anxious about leaving, and is working on a safety plan. Physical Exam Psychiatric Orientation: alert and cooperative Apperance: appropriately dressed, appropriately groomed and appeared stated age Eye Contact: good eye contact Motor Behavior: steady gait and station and no abnormal motor movements Speech: normal rate/rhythm/volume of speech Affect: euthymic affect "Much better" Thought Process: goal directed thought process Thought Content: reality based without delusions Suicidal Thoughts: denies suicidal thoughts Homicidal Thoughts: denies homicidal thoughts Hallucinations: no auditory hallucinations Cognition: recent memory grossly intact, attention grossly intact and language grossly intact Insight: good insight Judgement: good judgement Vital Signs (Past 24 Hours) Last Vital Signs Temp 36.5 C 01/09/21 06:41 Pulse 65 01/09/21 06:42 Resp 16 01/09/21 06:41 BP 92/60 L 01/09/21 06:42 Pulse Ox 97 01/04/21 06:44 Results & Data ([facility]) Current Inpatient Medications Current Inpatient Medications: Current Inpatient Medications Acetaminophen (Acetaminophen 325 Mg Tab) 650 mg PO Q4H PRN PRN Reason: Headache or Minor Fever Stop: 02/03/21 07:04 Al Hydrox/Mg Hydrox/Simethicone (Aluminum/Magnesium Susp 30 Ml Udc) 30 ml PO Q4H PRN PRN Reason: GI Upset Stop: 02/03/21 07:04 Bismuth Subsalicylate (Bismuth Subsalicylate Liqd 236 Ml) 15 ml PO PRN PRN PRN Reason: Loose Stool Stop: 02/03/21 07:04 Hydroxyzine HCl (Hydroxyzine Hcl 25 Mg Tab) 50 mg PO HSZ PRN PRN Reason: Insomnia Stop: 02/03/21 07:04 Hydroxyzine HCl (Hydroxyzine Hcl 25 Mg Tab) 25 mg PO Q4H PRN PRN Reason: Anxiety Stop: 02/03/21 07:04 Magnesium Hydroxide (Magnesium Hydroxide Susp 30 Ml Udc) 30 ml PO DAILY PRN PRN Reason: Constipation Stop: 02/03/21 07:04 Nicotine Polacrilex (Nicotine Polacrilex 2 Mg Gum) 1 piece MT PRN PRN PRN Reason: nicotine cravings Stop: 02/03/21 16:11 Quetiapine Fumarate (Quetiapine Fumarate 25 Mg Tablet) 25 mg PO HS JEREMIAS Stop: 02/03/21 21:59 Last Admin: 01/08/21 21:27 Dose: 25 mg Documented by: Sertraline HCl (Sertraline Hcl 100 Mg Tablet) 100 mg PO DAILY JEREMIAS Stop: 02/04/21 08:59 Last Admin: 01/09/21 09:05 Dose: 100 mg Documented by: Sodium Chloride (Sodium Chloride 0.65% Na Soln 45 Ml ([place])) 1 - 2 sprays NA PRN PRN PRN Reason: Nasal Dryness/Congestion Stop: 02/03/21 07:04 Mental Health & Subst Abuse Tx Therapist Name of Therapist: Katt Woods Therapist's Date of Therapist Appointment: 01/11/21 Time of Therapist Appointment: 5:00 p.m. Therapy Appointment Comment: [place] [address] Leg Breaker Name of Leg Breaker: [employer] Phone Number for Leg Breaker: [phone] Date of Appointment with Leg Breaker: 01/12/21 Time of Appointment with Leg Breaker: 1:30 p.m. Case Management Appointment Comment: Will follow up via telephone with you Post Discharge Appointments Primary Care Physician Name Of Family Doctor: [facility] - Dr. Vladimir Delacruz (Promotions Executive) Primary Care Provider Appointment Comment: [phone], [address], and [address] [address] Contact Information Discharge Discharge [address]: [address] [place] [address] (1) Depression Depression Type: major depressive disorder Major depression recurrence: recurrent Active/Remission status: currently active Major depression episode severity: severe Psychotic features: without psychotic features Qualified Code(s): F33.2 - Major depressive disorder, recurrent severe without psychotic features
[2021-01-09] MEDS ORDERED: QUEtiapine FUMARATE 25 MG TABLET PO SCH (22:00)
--- NOTE | 2021-01-10 08:51 | Psychiatric Progress Note ---
Date of Service January 10, 2021 Impression / Recommendations Impression 20-year-old male admitted voluntarily for inpatient psychiatric admission on 01/04/21 after presenting to the ED via police due to worsening depression and SI. Symptoms improving, sleep still suboptimal and will adjust HS med. (1) Suicidal ideation: 01/04 - Admitted to a locked inpatient behavioral health unit, on q15 minute safety checks - Encourage medication initiation/adjustments as indicated - Encourage participation in group and recreational therapies - Gather collateral information from outpatient providers - Suggest family meeting to involve outpatient supports in safety planning - Arrange appropriate aftercare 01/05 - Denies SI currently, but ongoing depression with hopelessness 01/06 - Denies SI, increased hopefulness - More engaged in group programming within the past day 01/07 - 01/08 - Continues to deny SI 01/09 - Working on discharge safety plan. (2) Depression: 01/04 - Working diagnosis of major depressive disorder, given that patient has been experiencing episodes of depression since early High School. Differential includes substance-induced depressive disorder, or dysthymic disorder. Patient denies symptoms consistent with adam/hypomania, but does report an outpatient diagnosis of bipolar disorder/bipolar depression. - Pt agreed to titration of sertraline to 100mg daily. Risks, benefits, and potential side effects reviewed - this included Black Box warning regarding risk of suicidality in children and adolescents. We discussed reports that suggest suicidal thoughts may be more intense since medication changes were made; however, this timeline is also consistent with increased alcohol use and several situational stressors this semester. Pt was offered a trial of an alternative antidepressant medication, but agreed to initial plan to titrate sertraline while closely monitoring for worsening suicidality. Alternative medications would ideally address vegetative depressive symptom as well as chronic anxiety. - Pt will be encouraged to attend group and recreational programming - assist with development of healthy and effective coping strategies - Discuss influence of substance use on mood and anxiety, encourage D&A counseling - Schedule family meeting - ideally with parents - Referral for outpatient psychiatry - likely continuing with current individual therapist via teletherapy - Discuss safety and discharge planning 01/05 - Continue sertraline 100mg qAM - consider further titration as tolerated/indicated - Continue quetiapine for insomnia (home medications); fasting lipid panel and glucose ordered for tomorrow morning - Encourage more active engagement with unit programming - Schedule meeting with parents - Referral for outpatient psychiatry 01/06 - Continue as above - patient reports episodes of diarrhea, unsure if related to titration of sertraline - Fasting lab reviewed: all values WNL - Patient processing being "on a break" with girlfriend in a positive way - Will need to schedule a family meeting with patient's parents - Refer for outpatient psychiatric services 01/07 - Continue current medication regimen - patient reports feeling nervous about family meeting but otherwise mood has been improved overall - Continues to be engaging with peers, attending groups and processing stressors - Pt will still require psychiatry services for medication management - Family meeting with parents this morning - Encourage completion of written safety plan 01/08 - Pt reports lower mood in the morning, generally due to lingering fatigue - Continue sertraline 100mg. We did discuss ongoing difficulty sleeping due to racing thoughts - Discussed with patient that this is a rather potent medication for insomnia and offered a trial of hydroxyzine; patient indicated he was started on the medication for "mood stuff" as well. Will offer an as needed second dose of quetiapine. - Pt seems to be benefiting from group programming - Family meeting with parents yesterday - somewhat overwhelming, but ultimately supportive - Consider discharge within the next few days. 01/09 - Continue sertraline 100 mg, increase quetiapine to 50 mg at bedtime to target sleep and racing thoughts. - Increasing outpatient therapy to twice weekly, in the process of referring for outpatient psychiatric care. (3) Generalized anxiety disorder: 01/04 - Titrating sertraline as outlined above - Pt reports historical diagnosis of OCD and claims of "social anxiety", though reported anxiety is more consistent with "fear of missing out" or "fear that people don't like me or I'm not fitting in." - Encourage group attendance, 1:1 sessions as desired - Assist with development of healthy and effective coping strategies 01/05 - Continue as above - encourage more active participation in group programming - Hydroxyzine available as needed for anxiety 01/08 - Admits to episodes of anxiety, generally situational - patient has been finding coping skills, specifically journaling, to be helpful - Offer second prn dose of quetiapine for insomnia related to racing thoughts; patient also encouraged to consider prn hydroxyzine (4) Alcohol abuse: 01/04 - Monitor vitals daily - behavior is more consistent with binge drinking, seems to be at low risk for withdrawal, but could order AWSS protocol if indicated. - Encourage D&A counseling to address these concerns in addition to his mood/anxiety symptoms - Brief intervention was offered and accepted Intervention (if performed) was greater than 5 min in length. Brief interventions include: 1. Assess Readiness to Quit, 2. Advise: Help Patient to Reduce or Abstain from Alcohol, 3. Agree: Set Specific, Feasible Goals, 4. Assist: Anticipate barriers, Problem-Solving Solutions. Social work to 5. Arrange: Referrals to appropriate treatment. Summary of intervention: The patient is in contemplation stage with regards to transtheoretical model of change. The patient is advised to decrease alcohol consumption due to depressant effects and risk of interactions with prescription medications. The patient agreed to continue these discussion and will be provided with recovery materials to continue to education self on how to cope with their condition without drinking. 01/06 - Pt has been processing the repercussions of his alcohol/substance use - reporting desire to continue to focus on these ideas 01/08 - Pt continues to processing the negative impact of his binge drinking - reporting desire to abstain from alcohol - Recommend ongoing discussion in individual therapy (5) Marijuana abuse: 01/04 - History of intensive outpatient treatment for cannabis abuse his senior year of high school, reports "just occasional" use since that time - Offer D&A counseling (6) Nicotine abuse: 01/04 - Nicotine replacement products ordered Risk Factors Assessment Male: Yes : Yes Do You Have Access To A Gun?: No Health Problems: No Mental Health Diagnoses: Yes Substance Use Disorders: Yes Previous Attempt: Yes Previous Attempt; Highly Lethal: No Previous Psychiatric Hospitalization: No Hopelessness: No Smoker: No Protective Factors Assessment : No Responsible for Young Children: No Employed: No Stable Relationships: Yes Supportive Family: Yes Good Rapport with Provider: Yes Interval History Identifying Information MIKE GONZALEZ is a 20-year-old M who currently lives in a dorm room on [facility] campus and reports outpatient diagnoses of anxiety, depression, OCD, and bipolar disorder. Pt was admitted on 01/04/21 06:18 on a 201 voluntary commitment for worsening depression and SI. Chief Complaint "[]". Review of Systems Sleep Information Total Hours of Sleep: 6 Sleep Comments: pt on q-15 minute checks Meal Information Percent Meal Consumed - Breakfast: 100 Percent Meal Consumed - Lunch: 100 Percent Meal Consumed - Dinner: 100 Nutrition Comment: pt. has poor appetite at this time Subjective Subjective Patient was seen & assessed and interval progress reviewed with [treatment team] [nursing and social work] Physical Exam Vital Signs (Past 24 Hours) Last Vital Signs Temp 36.6 C 01/10/21 06:50 Pulse 65 01/10/21 06:51 Resp 16 01/10/21 06:50 BP 103/63 01/10/21 06:51 Pulse Ox 97 01/04/21 06:44 Results & Data ([facility]) Current Inpatient Medications Current Inpatient Medications: Current Inpatient Medications Acetaminophen (Acetaminophen 325 Mg Tab) 650 mg PO Q4H PRN PRN Reason: Headache or Minor Fever Stop: 02/03/21 07:04 Al Hydrox/Mg Hydrox/Simethicone (Aluminum/Magnesium Susp 30 Ml Udc) 30 ml PO Q4H PRN PRN Reason: GI Upset Stop: 02/03/21 07:04 Bismuth Subsalicylate (Bismuth Subsalicylate Liqd 236 Ml) 15 ml PO PRN PRN PRN Reason: Loose Stool Stop: 02/03/21 07:04 Hydroxyzine HCl (Hydroxyzine Hcl 25 Mg Tab) 50 mg PO HSZ PRN PRN Reason: Insomnia Stop: 02/03/21 07:04 Hydroxyzine HCl (Hydroxyzine Hcl 25 Mg Tab) 25 mg PO Q4H PRN PRN Reason: Anxiety Stop: 02/03/21 07:04 Magnesium Hydroxide (Magnesium Hydroxide Susp 30 Ml Udc) 30 ml PO DAILY PRN PRN Reason: Constipation Stop: 02/03/21 07:04 Nicotine Polacrilex (Nicotine Polacrilex 2 Mg Gum) 1 piece MT PRN PRN PRN Reason: nicotine cravings Stop: 02/03/21 16:11 Quetiapine Fumarate (Quetiapine Fumarate 25 Mg Tablet) 50 mg PO HS JEREMIAS Stop: 02/08/21 21:59 Last Admin: 01/09/21 22:26 Dose: 50 mg Documented by: Sertraline HCl (Sertraline Hcl 100 Mg Tablet) 100 mg PO DAILY JEREMIAS Stop: 02/04/21 08:59 Last Admin: 01/09/21 09:05 Dose: 100 mg Documented by: Sodium Chloride (Sodium Chloride 0.65% Na Soln 45 Ml ([place])) 1 - 2 sprays NA PRN PRN PRN Reason: Nasal Dryness/Congestion Stop: 02/03/21 07:04 Mental Health & Subst Abuse Tx Therapist Name of Therapist: Katt Brambilajuan carlos Therapist's Date of Therapist Appointment: 01/11/21 Time of Therapist Appointment: 5:00 p.m. Therapy Appointment Comment: [address] [place] [id number] Television And Radio Repairer Name of Television And Radio Repairer: [employer] [facility] [employer] Phone Number for Television And Radio Repairer: [phone] Date of Appointment with Television And Radio Repairer: 01/12/21 Time of Appointment with Television And Radio Repairer: 1:30 p.m. Case Management Appointment Comment: Will follow up via telephone with you Post Discharge Appointments Primary Care Physician Name Of Family Doctor: [facility] - Dr. Vladimir Delacruz (X Ray Equipment Tester) Primary Care Provider Appointment Comment: [phone] [facility] 3, 4, and [address] [address] Contact Information Discharge Discharge Address: [address] [place] [address] (1) Depression Depression Type: major depressive disorder Major depression recurrence: recurrent Active/Remission status: currently active Major depression episode severity: severe Psychotic features: without psychotic features Qualified Code(s): F33.2 - Major depressive disorder, recurrent severe without psychotic features
--- NOTE | 2021-01-10 08:52 | Discharge Summary ---
Date of Service January 10, 2021 History of Present Illness Jay Hodges is a 20-year-old male admitted voluntarily for inpatient psychiatric treatment on 01/04/21 due to worsening depression and SI. He was reportedly drinking and became acutely upset and had verbalized suicidality. Pt continued to escalate, eventually escaping from the friends that were offering assistance and running away. Pt was found by police after the friends had called 911. Pt did agree to recommendations for mental health evaluation in the ED. [employer] petitioning statement was prepared by the patient's girlfriend - some quotes from the statement include: "Vangie Thompson drank with some friends...he got upset. He started walking away and saying he was going to end it tonight. I followed him, he started hitting his head w/ his hands...kept saying he was going to kill himself tonight...Two weeks ago he said the same things, he didn't want to be alive and he hurts everyone. Tonight he also said he's been playing suicide the past 2 months." Statements do seem to suggest that these events occur more when the patient is intoxicated, but no isolated to these events. The patient was brought to the unit early this morning after reportedly little sleep in the ED. Numerous attempts were made this morning by our psychiatrist to attempt to meet with the patient and complete psychiatric evaluation. Pt continued to be too sedated to participate. Per the patient, he has been noticing increased dependence on nicotine and has been visiting with a friend who is "a bad influence" in order to use the friend's vape. The patient states that he has not been telling his girlfriend about this since the girlfriend requested he not hang out with this friend anymore. The patient had been drinking and his girlfriend confronted him about the visit, causing the patient to feel "my brain went into panic mode". Pt states he reported he wanted to kill himself and began walking away from his girlfriend while hitting his head. Pt ran away from his friends, who then called police. He states "I didn't really care what happened after I ran away, I wouldn't have cared if I got hurt." Pt states that the suicidal thoughts are worse when he is drinking, but he admits that even when sober he experiences thoughts of wanting to end his life. He reports these thoughts occur 3-4 times a week and usually in the evening. He states they have become worse since the start of the semester, due to feeling he is no longer a part of the friend group he established in the Fall. He reports feeling as though he does not have happiness outside of his girlfriend. Pt admits to depressive symptoms "since grade school, I never really fit in." He reports he would often feel he had to "fake it" to make friends and states he depression worsened in high school as "it was like someone hit the reset button, like I had to start all over again." Pt admits to depressive symptoms of persistent low moods, anhedonia, poor motivation/energy, increased desire for sleep, loneliness, hopelessness, and intermittent SI. Pt also admits to significant anxiety, feeling that he suffers from "FOMO, the fear of missing out." He says he likes to be social and feel involved, but gets anxious when he questions if his friends like him or feels like he needs to fit in. He reports racing thoughts that often interfere with sleep, difficulty concentrating, constant worry about "feeling like I have to do the 'right thing'", and occasional panic attacks that result in crying spells and nausea. In particular, the patient states the substance-abuse culture of college has been difficult - "that's just what people do when they hang out." Pt admits to routine binge drinking, which he does feel negatively affects his mood and relationships. He also admits to increased nicotine use recently. Pt has a history of intensive outpatient treatment for marijuana abuse in high school. Pt states he sees a therapist routinely, who has diagnosed him with OCD and bipolar disorder in addition to anxiety and depression. He denies clear obsessi ons or compulsions and does not report symptoms consistent with adam/hypomania. Pt denies HI, SIB, A/V hallucinations, paranoia, adam/hypomania, other symptoms more suggestive of a bipolar presentation, OCD, PTSD, eating disorder, and other specific psychiatric symptoms. Physical Exam Psychiatric Orientation: alert, oriented x 3 and cooperative (and pleasant) Apperance: appropriately dressed (casually, in t-shirt and scrub pants), + disheveled (hair appearing unkempt, standing on end in places) and appeared stated age Eye Contact: good eye contact Motor Behavior: steady gait and station and no abnormal motor movements Speech: normal rate/rhythm/volume of speech Affect: euthymic affect (bright and interactive) and mood congruent with affect Mood: no depressed mood ("much better") Thought Process: goal directed thought process, clear/coherent thought process and thought association intact Thought Content: reality based without delusions; no hopelessness and no worthlessness Suicidal Thoughts: denies suicidal thoughts, denies suicidal plan and denies suicidal intent Homicidal Thoughts: denies homicidal thoughts Hallucinations: no auditory hallucinations and no visual hallucinations Cognition: recent memory grossly intact, attention grossly intact and language grossly intact Estimated Intelligence: consistent with education level Insight: good insight Judgement: good judgement Vital Signs (Past 24 Hours) Last Vital Signs Temp 36.6 C 01/10/21 06:50 Pulse 65 01/10/21 06:51 Resp 16 01/10/21 06:50 BP 103/63 01/10/21 06:51 Pulse Ox 97 01/04/21 06:44 Principal Diagnosis - Major depressive disorder, recurrent, severe, without psychotic features - Generalized anxiety disorder - Alcohol use/abuse - Nicotine use - Hx of marijuana abuse Psychiatric Data See "Hospital Course" section for daily care summary. 20-year-old male admitted voluntarily for inpatient psychiatric admission on 01/04/21 after presenting to the ED via police due to worsening depression and SI. [employer] petitioning statement was completed by girlfriend who reported the patient had made suicidal statements prior to admission and resisted attempts by supports to assist with the situation. Although patient had reportedly been drinking prior to these events, girlfriend did admit this is a pattern of behavior for the patient even when sober. Pt reported historical diagnoses of "depression, anxiety, OCD, and bipolar disorder" but through admission assessment only reported clear criteria for major depressive disorder and generalized anxiety disorder (though certainly recommend further discussion surrounding OCD traits). Pt also endorsed regular episodes of binge drinking as well as "nicotine addiction" with a history of intensive outpatient rehab for marijuana use ~1 year ago. Prior to his admission, the patient was established with a therapist, now remote visits due to being back at school, and medications were prescribed by his PCP. Pt agreed to titration of sertraline and wished to continue quetiapine which was reportedly started for insomnia - at time of discharge, patient was prescribed sertraline 100mg qAM and quetiapine 50mg qHS. During the patient's admission, his girlfriend did request they take a "break" for patient to focus on his mental health. Pt processed this well and it did seem to motivate him to engage with treatment, eventually reporting independent motivation to make significant life changes. He was able to process his pattern of alcohol use with staff and reports plans to abstain from substance use. Pt was somewhat slow to integrate himself into the milieu, but after 1-2 days the patient became an active participant and was supportive of peers. He did agree to a family meeting with his parents, and views them as supports - though discussion was primarily focused on patient's desire to transition to increased independence. Aftercare appointments were coordinated. Pt will continue to meet with his established therapist, with plan to increase visits to twice weekly. Pt was also set up with an appointment at [facility] to assist with transitional services. Referral sent to [facility] for psychiatric medication management. Based on review of patient's case and their current presentation, risk of harm to self or others is no longer perceived to be acute. Management of symptoms on an outpatient basis seems the most appropriate and least restrictive setting. Pt seems appropriate for discharge with recommendation for consistent follow-up with outpatient psychiatric prescriber and therapist. Pt verbalized understanding of discharge plan reviewed and is agreeable with plan to be discharged back to campus today, with transportation provided by parents. Day of Discharge Assessment Patient's case was reviewed and discussed during treatment team. Staff report the patient has been out of his room, interactive with peers, and consistent with attendance of group programming. Pt was seen today to assess readiness for discharge. Pt states that he is "feeling good." He does admit to somewhat poor sleep last evening due to not having his stuffed animals which led to increased anxiety. Pt does feel, however, that the titrated dose of quetiapine helped to combat this. Pt reports feeling comfortable with his current medication regimen. We spent some time reviewing changes patient would like to work on after discharge. He admits "I know that I can't drink. I need to just not start again, I know myself." Pt was able to provide strategies to achieve this goal, specifically creating separation from individuals he views as a bad influence in this area. Pt states he has also talked with his therapist about possibly scheduling their twice weekly visits to be "before and after the weekend, to help me strategize and then debrief." Pt states he is also hoping to get more involved in clubs on campus, hoping to "find things outside just my major that make me happy, and also help me meet people." Pt continues to be processing his "break" from his girlfriend appropriately and seems independently motivated to make some life changes. Pt does state that he has talked to his girlfriend about more specific related to the conditions of their "break" which has helped to calm some anxiety. Pt continues to deny SI and reports feeling as though his treatment goals have been met. He will be picked up by his parents later this morning, and has a therapy appointment scheduled for tomorrow. ROS: Constitutional: reports disrupted sleep last evening Cardiovascular: denied Respiratory: denied Gastrointestinal: denied Neurological: denied Psychiatric: denies symptoms other than stated above Total of at least 10 systems reviewed, pertinent positives as above and in HPI. Transition of Care Transition Of Care Record: was reviewed with the patient Advance Directives Advance Directives Information Provided: Yes Advance Directives: No Mental Health Advance Directive: No Advance Directives on File: No Living Will: No Power of Child Specialist: No Advance Directives Reason:: Declines as Mental Health Visit. Risk Factors Assessment Presenting risk factors reviewed on discharge. Precipitating stressors mitigated by: admission for inpatient psychiatric observation and treatment, appropriate adjustments to medications to target symptoms, attendance of therapeutic treatment groups, development of healthy and effective coping strategies, involvement of outpatient supports, completion of a safety plan, confirmation of guns and weapons being secured, discussion regarding substance abuse and effects on mental health diagnoses, and education on diagnoses. Pt has demonstrated improvement in condition with regard to improvement in mood and anxiety, resolution of SI, development of healthy and effective coping skills, involvement of outpatient supports, and coordination of outpatient services. At this time, patient is requesting discharge and is no longer considered to be at acute risk of harm to himself or others. Pt will be discharged with recommendation for ongoing outpatient psychiatric treatment. Male: Yes : Yes Do You Have Access To A Gun?: No Health Problems: No Mental Health Diagnoses: Yes Substance Use Disorders: Yes Previous Attempt: Yes Previous Attempt; Highly Lethal: No Previous Psychiatric Hospitalization: No Hopelessness: No Smoker: No Protective Factors Assessment : No Responsible for Young Children: No Employed: No Stable Relationships: Yes Supportive Family: Yes Good Rapport with Provider: Yes Tobacco Cessation at Discharge Tobacco Cessation Medication Prescribed at Discharge: Offered & Prescribed Practical counseling provided including: recognizing danger situations, developing coping skills and providing basic information about quitting Tobacco Cessation Outpatient Followup: Outpatient referral made to (impact of substance abuse concerns to be discussed further with providers at [facility] and in outpatient therapy) Total Time Total Time Spent: Greater Than 30 Minutes Total Time Includes: Examination of the patient, Discharge Planning, Medication Reconciliation and Communication with other providers Discharge Data Lab Results 01/04/21 01/04/21 01/04/21 00:24 00:24 00:29 WBC 7.97 RBC 4.82 Hgb 15.1 Hct 43.9 MCV 91.1 MCH 31.3 MCHC 34.4 RDW Std Deviation 41.9 RDW Coeff of Vasquez 12.4 Plt Count 265 MPV 10.3 Immature Gran % (Auto) 0.1 Neut % (Auto) 60.5 Lymph % (Auto) 30.1 Dent % (Auto) 7.7 Eos % (Auto) 1.1 Baso % (Auto) 0.5 Neut # (Auto) 4.82 Lymph # (Auto) 2.40 Dent # (Auto) 0.61 H Eos # (Auto) 0.09 Baso # (Auto) 0.04 Immature Gran # (Auto) 0.01 Sodium Potassium Chloride Carbon Dioxide Anion Gap BUN Creatinine Est Cr Clr Drug Dosing Est GFR ( Amer) Est GFR (Non-Af Amer) BUN/Creatinine Ratio Glucose Fasting Glucose Calcium Total Bilirubin AST ALT Alkaline Phosphatase Total Protein Albumin Globulin Albumin/Globulin Ratio Triglycerides Cholesterol LDL Cholesterol, Calc VLDL Cholesterol, Calc HDL Cholesterol Cholesterol/HDL Ratio TSH Urine Color Yellow Urine Appearance Clear Urine pH 5.0 Ur Specific [place] 1.010 Urine Protein Trace H Urine Glucose (UA) Negative Urine Ketones Negative Urine Blood Negative Urine Nitrite Negative Urine Bilirubin Negative Urine Urobilinogen Negative Ur Leukocyte Esterase Negative Urine RBC 0-4 Urine WBC 0-5 Ur Epithelial Cells 20-30 H Urine Bacteria Negative Salicylates Urine Opiates Screen Neg Ur Methadone, Qual Neg Acetaminophen Urine Barbiturates Neg Ur Phencyclidine (PCP) Neg U Amphetamin/Meth Scrn Neg MDMA (Ecstasy) Screen Neg U Benzodiazepines Scrn Neg Ur Cocaine Metabolite Neg U Marijuana (THC) Screen Neg Ethyl Alcohol mg/dL COVID-19 Eval Order SARS-CoV-2, RNA, NAAT 01/04/21 01/04/21 01/04/21 00:29 00:29 00:29 WBC RBC Hgb Hct MCV MCH MCHC RDW Std Deviation RDW Coeff of Vasquez Plt Count MPV Immature Gran % (Auto) Neut % (Auto) Lymph % (Auto) Dent % (Auto) Eos % (Auto) Baso % (Auto) Neut # (Auto) Lymph # (Auto) Dent # (Auto) Eos # (Auto) Baso # (Auto) Immature Gran # (Auto) Sodium 139 Potassium 3.6 Chloride 106 Carbon Dioxide 27 Anion Gap 6.0 BUN 16 Creatinine 1.24 Est Cr Clr Drug Dosing 108.3 Est GFR ( Amer) 97.1 Est GFR (Non-Af Amer) 83.8 BUN/Creatinine Ratio 12.7 Glucose 91 Fasting Glucose Calcium 8.6 Total Bilirubin 0.6 AST 15 ALT 23 Alkaline Phosphatase 94 Total Protein 8.5 H Albumin 4.6 Globulin 3.9 Albumin/Globulin Ratio 1.2 Triglycerides Cholesterol LDL Cholesterol, Calc VLDL Cholesterol, Calc HDL Cholesterol Cholesterol/HDL Ratio TSH 1.210 Urine Color Urine Appearance Urine pH Ur Specific [place] Urine Protein Urine Glucose (UA) Urine Ketones Urine Blood Urine Nitrite Urine Bilirubin Urine Urobilinogen Ur Leukocyte Esterase Urine RBC Urine WBC Ur Epithelial Cells Urine Bacteria Salicylates < 1.7 L Urine Opiates Screen Ur Methadone, Qual Acetaminophen < 2 L Urine Barbiturates Ur Phencyclidine (PCP) U Amphetamin/Meth Scrn MDMA (Ecstasy) Screen U Benzodiazepines Scrn Ur Cocaine Metabolite U Marijuana (THC) Screen Ethyl Alcohol mg/dL 154.7 H COVID-19 Eval Order SARS-CoV-2, RNA, NAAT 01/04/21 01/04/21 01/06/21 05:15 05:15 08:04 WBC RBC Hgb Hct MCV MCH MCHC RDW Std Deviation RDW Coeff of Vasquez Plt Count MPV Immature Gran % (Auto) Neut % (Auto) Lymph % (Auto) Dent % (Auto) Eos % (Auto) Baso % (Auto) Neut # (Auto) Lymph # (Auto) Dent # (Auto) Eos # (Auto) Baso # (Auto) Immature Gran # (Auto) Sodium Potassium Chloride Carbon Dioxide Anion Gap BUN Creatinine Est Cr Clr Drug Dosing Est GFR ( Amer) Est GFR (Non-Af Amer) BUN/Creatinine Ratio Glucose Fasting Glucose 88 Calcium Total Bilirubin AST ALT Alkaline Phosphatase Total Protein Albumin Globulin Albumin/Globulin Ratio Triglycerides 94 Cholesterol 144 LDL Cholesterol, Calc 91 VLDL Cholesterol, Calc 19 HDL Cholesterol 34 Cholesterol/HDL Ratio 4 TSH Urine Color Urine Appearance Urine pH Ur Specific [place] Urine Protein Urine Glucose (UA) Urine Ketones Urine Blood Urine Nitrite Urine Bilirubin Urine Urobilinogen Ur Leukocyte Esterase Urine RBC Urine WBC Ur Epithelial Cells Urine Bacteria Salicylates Urine Opiates Screen Ur Methadone, Qual Acetaminophen Urine Barbiturates Ur Phencyclidine (PCP) U Amphetamin/Meth Scrn MDMA (Ecstasy) Screen U Benzodiazepines Scrn Ur Cocaine Metabolite U Marijuana (THC) Screen Ethyl Alcohol mg/dL COVID[facility], [facility], NAAT NEGATIVE Hospital Course (1) Suicidal ideation: 01/04 - Admitted to a locked inpatient behavioral health unit, on q15 minute safety checks - Encourage medication initiation/adjustments as indicated - Encourage participation in group and recreational therapies - Gather collateral information from outpatient providers - Suggest family meeting to involve outpatient supports in safety planning - Arrange appropriate aftercare 01/05 - Denies SI currently, but ongoing depression with hopelessness 01/06 - Denies SI, increased hopefulness - More engaged in group programming within the past day 01/07 - 01/08 - Continues to deny SI 01/09 - Working on discharge safety plan. (2) Depression: 01/04 - Working diagnosis of major depressive disorder, given that patient has been experiencing episodes of depression since early High School. Differential includes substance-induced depressive disorder, or dysthymic disorder. Patient denies symptoms consistent with adam/hypomania, but does report an outpatient diagnosis of bipolar disorder/bipolar depression. - Pt agreed to titration of sertraline to 100mg daily. Risks, benefits, and potential side effects reviewed - this included Black Box warning regarding risk of suicidality in children and adolescents. We discussed reports that suggest suicidal thoughts may be more intense since medication changes were made; however, this timeline is also consistent with increased alcohol use and several situational stressors this semester. Pt was offered a trial of an alternative antidepressant medication, but agreed to initial plan to titrate sertraline while closely monitoring for worsening suicidality. Alternative medications would ideally address vegetative depressive symptom as well as chronic anxiety. - Pt will be encouraged to attend group and recreational programming - assist with development of healthy and effective coping strategies - Discuss influence of substance use on mood and anxiety, encourage D&A counseling - Schedule family meeting - ideally with parents - Referral for outpatient psychiatry - likely continuing with current individual therapist via teletherapy - Discuss safety and discharge planning 01/05 - Continue sertraline 100mg qAM - consider further titration as tolerated/indicated - Continue quetiapine for insomnia (home medications); fasting lipid panel and glucose ordered for tomorrow morning - Encourage more active engagement with unit programming - Schedule meeting with parents - Referral for outpatient psychiatry 01/06 - Continue as above - patient reports episodes of diarrhea, unsure if related to titration of sertraline - Fasting lab reviewed: all values WNL - Patient processing being "on a break" with girlfriend in a positive way - Will need to schedule a family meeting with patient's parents - Refer for outpatient psychiatric services 01/07 - Continue current medication regimen - patient reports feeling nervous about family meeting but otherwise mood has been improved overall - Continues to be engaging with peers, attending groups and processing stressors - Pt will still require psychiatry services for medication management - Family meeting with parents this morning - Encourage completion of written safety plan 01/08 - Pt reports lower mood in the morning, generally due to lingering fatigue - Continue sertraline 100mg. We did discuss ongoing difficulty sleeping due to racing thoughts - Discussed with patient that this is a rather potent medication for insomnia and offered a trial of hydroxyzine; patient indicated he was star rudy on the medication for "mood stuff" as well. Will offer an as needed second dose of quetiapine. - Pt seems to be benefiting from group programming - Family meeting with parents yesterday - somewhat overwhelming, but ultimately supportive - Consider discharge within the next few days. 01/09 - Continue sertraline 100 mg, increase quetiapine to 50 mg at bedtime to target sleep and racing thoughts. - Increasing outpatient therapy to twice weekly, in the process of referring for outpatient psychiatric care. (3) Generalized anxiety disorder: 01/04 - Titrating sertraline as outlined above - Pt reports historical diagnosis of OCD and claims of "social anxiety", though reported anxiety is more consistent with "fear of missing out" or "fear that people don't like me or I'm not fitting in." - Encourage group attendance, 1:1 sessions as desired - Assist with development of healthy and effective coping strategies 01/05 - Continue as above - encourage more active participation in group programming - Hydroxyzine available as needed for anxiety 01/08 - Admits to episodes of anxiety, generally situational - patient has been finding coping skills, specifically journaling, to be helpful - Offer second prn dose of quetiapine for insomnia related to racing thoughts; patient also encouraged to consider prn hydroxyzine (4) Alcohol abuse: 01/04 - Monitor vitals daily - behavior is more consistent with binge drinking, seems to be at low risk for withdrawal, but could order AWSS protocol if indicated. - Encourage D&A counseling to address these concerns in addition to his mood/anxiety symptoms - Brief intervention was offered and accepted Intervention (if performed) was greater than 5 min in length. Brief interventions include: 1. Assess Readiness to Quit, 2. Advise: Help Patient to Reduce or Abstain from Alcohol, 3. Agree: Set Specific, Feasible Goals, 4. Assist: Anticipate barriers, Problem-Solving Solutions. Social work to 5. Arrange: Referrals to appropriate treatment. Summary of intervention: The patient is in contemplation stage with regards to transtheoretical model of change. The patient is advised to decrease alcohol consumption due to depressant effects and risk of interactions with prescription medications. The patient agreed to continue these discussion and will be provided with recovery materials to continue to education self on how to cope with their condition without drinking. 01/06 - Pt has been processing the repercussions of his alcohol/substance use - reporting desire to continue to focus on these ideas 01/08 - Pt continues to processing the negative impact of his binge drinking - reporting desire to abstain from alcohol - Recommend ongoing discussion in individual therapy (5) Marijuana abuse: 01/04 - History of intensive outpatient treatment for cannabis abuse his senior year of high school, reports "just occasional" use since that time - Offer D&A counseling (6) Nicotine abuse: 01/04 - Nicotine replacement products ordered Mental Health & Subst Abuse Tx Psychiatrist Name of Psychiatrist: Referral faxed to [facility] Bridge Appointment Psychiatrist's Therapist Name of Therapist: Katt Woods Therapist's Date of Therapist Appointment: 01/11/21 Time of Therapist Appointment: 5:00 p.m. Therapy Appointment Comment: [address] [place] [id number] Customer Engagement Analyst Name of Customer Engagement Analyst: [employer] Phone Number for Customer Engagement Analyst: [phone] Date of Appointment with Customer Engagement Analyst: 01/12/21 Time of Appointment with Customer Engagement Analyst: 1:30 p.m. Case Management Appointment Comment: Will follow up via telephone with you Post Discharge Appointments Primary Care Physician Name Of Family Doctor: [facility] - Dr. Vladimir Delacruz (Restaurant Area Director) Primary Care Provider Appointment Comment: [address] [place] [address] [facility], [facility], and [address] [address] Smoking Cessation Counseling Tobacco Cessation Medication Prescribed at Discharge: Offered & Prescribed Other #1: Name of Aftercare Appointment: [facility] - bridge appointment for transitional services Phone Number of Aftercare Appointment: [phone] Date of Aftercare Appointment: 01/23/21 Time of Aftercare Appointment: 11am Aftercare Appointment Comment: [facility] called after dc and said they will call pt at home. Release of Information Aftercare Appointment: Obtained, Reviewed and Signed Contact Information Discharge Discharge Address: [address] [place] [address] Discharge Plan Discharge Items Patient Disposition: Home - Self-Care Reason For Visit: BIPOLAR DISORDER Discharge Diagnosis: - Major depressive disorder - Generalized anxiety disorder - Alcohol use Condition on Discharge: Good Activity: Resume your previous activity Non-emergency contact: Primary Care Provider, Psychiatrist and Therapist Call non-emergency contact if: you have any medication questions and your symptoms worsen Follow-up/Referrals: [place] [Primary Care Provider] - Diet: Regular Addtl Attending Provider Instructions: SPECIAL CARE INSTRUCTIONS: 1. Follow through with your scheduled aftercare appointments. If unable to keep an appointment, please call to reschedule. 2. Take your medication only as prescribed. Medication should not be changed or stopped without the approval of your doctor. In the event of worsening symptoms or concerns about side effects, contact your doctor immediately. 3. Utilize new healthy coping skills, anger management skills, and stress management skills learned during your hospitalization. Journal feelings and process them with a support person. Identify stressors or situations that may result in relapse, deterioration or inappropriate behaviors and develop a plan to deal with those issues. 4. If your coping skills are ineffective and you are in crisis, contact your outpatient providers for direction. If unable to reach your providers, please call the [facility] CRISIS LINE AT , go to the [facility] walk-in center at [address], [address], [place], or go to the closest Emergency Room. 5. Avoid alcohol and un-prescribed drugs. 6. You have been provided with the Mental Health Advance Directives Pamphlet for your review. AFTERCARE APPOINTMENTS: * Please call your insurance company prior to your scheduled appointment to confirm your aftercare providers are covered. Take your insurance information to your appointments. WHO TO CALL AND WHEN: Medical Emergencies: For questions or emergencies related to your hospital stay, please contact the Inpatient Behavioral Health Unit at [phone]. A airplane pilot helper is on-call 19/05 for the Behavioral Health Unit for emergencies At any time you feel your situation is an emergency, you may also call 911 immediately. Pending Studies at Discharge: No Stand-Alone Forms: My [facility], Smoking Cessation Medications and DC Order Prescriptions: New quetiapine 50 mg tablet 50 mg PO HS 30 Days Qty: 30 RF: 0 sertraline 100 mg Tablet 100 mg PO DAILY 30 Days Qty: 30 RF: 0 nicotine (polacrilex) [Nicorette] 2 mg Gum 2 mg MT PRN PRN (Reason: nicotine cravings) Qty: 100 RF: 0 Discontinued quetiapine 25 mg Tablet 25 mg PO DAILY RF: 0 sertraline 50 mg Tablet 50 mg PO DAILY RF: 0 Discharge Orders: Discharge Order (Routine); Ordered 01/10/21 Ordered By: Kizzy Campos Admission Data Admit Date/Time: 01/04/21 06:18 Attending Provider: Maile Joya Admit Provider: Patti Rodrigues Primary Care Provider: [place] Other Interventions: Discharge Summary Assessment (RN) Last Done: 01/10/21 11:18 PSY Interdisciplinary Discharge Planning Last Done: 01/10/21 12:06 Coding Level of Care Code 68664 D/C day mgmt > 30 min Diagnoses Suicidal ideation R45.851 Depression F33.2 Depression Type: major depressive disorder Major depression recurrence: recurrent Active/Remission status: currently active Major depression episode severity: severe Psychotic features: without psychotic features Generalized anxiety disorder F41.1 Alcohol abuse F10.10 Marijuana abuse F12.10 Nicotine abuse Z72.0
[2021-01-10] MEDS: SERTRALINE HCL 100 MG TABLET PO SCH (09:00)
== END 2021-01-10 11:40 | disposition home or self-care (01) | DRG 885 ==
LOC: ED 00:02 → 3S 06:18